=== PATIENT | female | born 1960 | race Caucasian/White ===

== ENCOUNTER 2019-12-24 13:23 | Emergency (ER) | payer OTHER, SELFPAY ==
--- NOTE | 2019-12-24 13:29 | ED.WOUNDLAC ---
HPI - Wound/Laceration General Chief Complaint: Wound/Laceration Stated Complaint: lac on L index finger Source: patient History of Present Illness HPI narrative: this is a 59-year-old female that presents with laceration to the tip of her left index finger while she was outdoors doing yd work with hedge trimmers causing a laceration of the tip of her left index finger into the nail non gaping well-approximated 2 small lacerations, initially was bleeding came in with the finger wrapped currently there is no bleeding there is some mild numbness at the tip of her finger. Onset (ago): hour(s) Extremity Location: Left: hand ( index finger laceration) Place: home and outdoors Patient tetanus UTD: No Context: accidental Associated symptoms: none Related Data Home Medications Medication Instructions Recorded Confirmed aspirin 81 mg PO DAILY 12/24/19 12/24/19 atorvastatin 40 mg PO DAILY 12/24/19 12/24/19 coQ10 (ubiquinol) 100 mg PO BID 12/24/19 12/24/19 Allergies Allergy/AdvReac Type Severity Reaction Status Date / Time No Known Allergies Allergy Verified 12/24/19 13:41 Review of Systems Review of Systems: All systems reviewed & are unremarkable except as noted in HPI and below PMFSH Past Medical History Medical History HLD (hyperlipidemia) Exam Const: General: no acute distress and alert Orientation/consciousness: patient oriented x3 HENMT: Head: normal to inspection Eyes: Conjunctivae: conjunctivae normal Pupils: Equal, round and reactive pupils present Neck: Neck: normal visual inspection, no lymphadenopathy and no meningeal signs Chest: Chest palpation & inspection: normal inspection of the chest Resp: Effort & Inspection: normal respiratory effort Auscultation: clear to auscultation bilaterally Cardio: Rate: regular rate Rhythm: regular rhythm GI: GI Palp: Yes Soft to palpation Skin: General skin exam: normal color Rashes: no rashes Other: laceration to the tip of her left index finger into the nail non gaping well-approximated Neuro: General: patient oriented x3, moves all extremities and no meningeal signs Extrem: General: normal to inspection and no pedal edema Psych: Appearance: grossly normal Mental Status: mental status grossly normal Course Course Emergency Course: Dermabond was placed on the finger, patient tolerated procedure well, and tetanus was updated Procedures Laceration Laceration 1: Date: 12/24/19 Time: 13:52 Site: upper extremity Side (If applicable): left Size (cm): 1.5 Description: irregular ( involving the the nail of her left index finger) ====== Skin Level ====== Skin layer closed with: dermabond ====== Subcutaneous Layer ====== ====== Muscle Layer ====== ====== Tendon Layer ====== MDM - Wound/Laceration ECG Data EKG #1: ECG completion date: 12/24/19 ECG completion time: 13:05 Prior ECG tracings: available for review EKG Interpretation: normal rate, bradycardia and non-specific ST changes Critical Care Time Critical Care Time Critical Care Time: No Discharge Plan Discharge Clinical Impression: Laceration Patient Disposition: Home, Self-Care Condition: Stable Instructions: Antibiotic Form, Laceration (ED) Additional Instructions: follow-up with primary care physician if symptoms persist or worsen. Prescriptions: No Action atorvastatin 40 mg tablet 40 mg PO DAILY RF: 0 aspirin 81 mg Tablet,Chewable 81 mg PO DAILY RF: 0 coQ10 (ubiquinol) 100 mg Capsule 100 mg PO BID RF: 0 Follow-up/Referrals: PHYSICIAN NOT ON STAFF,NONSTAFF [Primary Care Provider] - Time of Disposition: 13:53
[2019-12-24 13:35] VITALS: BP 167/99; PULSE 97; RESP 16; TEMP 36.7; O2SAT 100
[2019-12-24] MEDS: TETANUS,DIPHTHERIA,AC PERTUSSIS ADULT 0.5 ML (ADACEL) IM (13:38)
[2019-12-24 14:02] VITALS: RESP 15
== END 2019-12-24 14:02 | disposition home or self-care (01) ==
PROVIDERS: Emergency Provider Emergency Medicine
DX: S61.211A Laceration without foreign body of left index finger without damage to nail, initial encounter (principal); W27.8XXA Contact with other nonpowered hand tool, initial encounter
CPT/HCPCS: 12001; 90471; 90715; 99282

== ENCOUNTER 2020-01-07 10:32 | Emergency (ER) | payer OTHER, SELFPAY ==
--- NOTE | ~2020-01-07 | XR_ITS ---
XR chest 2V DATE: 01/07/2020 11:31 INDICATION: Chest pain TECHNIQUE: PA and lateral views COMPARISON: 10/30/2018 portable AP chest FINDINGS: Normal heart size. There is aortic calcification and mild unfolding. No hilar or mediastina l enlargement. No pulmonary infiltrate or consolidation, pleural effusion or pulmonary vascular conge stion or pneumothorax is detected. Surgical clips, right upper quadrant, likely due to cholecystectomy. IMPRESSION: No active cardiopulmonary disease Reviewed, dictated and finalized at location A.
--- NOTE | 2020-01-07 10:34 | ECG_ITS ---
Measurements Intervals [place] Rate: 71 P: 77 KS: 191 QRS: 7 QRSD: 94 T: 91 QT: 392 QTc: 426 Interpretive Statements SINUS RHYTHM POSSIBLE LEFT ATRIAL ENLARGEMENT NONSPECIFIC T-WAVE ABNORMALITY- HIGH LATERAL LEADS BORDERLINE ECG Electronically Signed On 01-08-2020 9:21:18 CDT by Chetan Roger D.O.
[2020-01-07 10:47] VITALS: BP 153/95; PULSE 75; PULSE 78; RESP 18; TEMP 36.7; O2SAT 98
--- NOTE | 2020-01-07 10:50 | ED.GENADULT ---
HPI - General Adult General Chief complaint: Chest Pain Stated complaint: chest tightness, L arm numbness/tingling Time Seen by Provider: 01/07/20 10:50 Source: patient Mode of arrival: ambulatory Limitations: no limitations Related Data Home Medications Medication Instructions Recorded Confirmed aspirin 81 mg PO DAILY 12/24/19 12/24/19 atorvastatin 40 mg PO DAILY 12/24/19 12/24/19 coQ10 (ubiquinol) 100 mg PO BID 12/24/19 12/24/19 Allergies Allergy/AdvReac Type Severity Reaction Status Date / Time No Known Allergies Allergy Verified 12/24/19 13:41 Discharge Plan Discharge Prescriptions: No Action atorvastatin 40 mg tablet 40 mg PO DAILY RF: 0 aspirin 81 mg Tablet,Chewable 81 mg PO DAILY RF: 0 coQ10 (ubiquinol) 100 mg Capsule 100 mg PO BID RF: 0
[2020-01-07] MEDS: ASPIRIN 81 MG CHEWABLE TABLET 243 MG PO (11:17)
[2020-01-07 11:19] LABS: Basophils Absolute Auto 0.03 K/mm3 (0.00-0.10); Basophils Percent Auto 0.5 % (0.0-1.0); Eosinophils Absolute Auto 0.23 K/mm3 (0.02-0.50); Eosinophils Percent Auto 3.5 % (1.0-6.0); Hematocrit 38.9 % (35.0-49.0); Hemoglobin 13.3 g/dL (12.0-15.0); Immature Granulocyte Absolute 0.01 K/mm3 (0.00-0.00); Immature Granulocyte Percent A 0.2 % (0.0-0.0); Lymphocytes Absolute Auto 1.84 K/mm3 (1.10-4.50); Lymphocytes Percent Auto 28.3 % (18.0-42.0); Mean Corpuscular HGB Conc 34.2 g/dL (32.0-36.0); Mean Corpuscular Volume 93.7 fL (78.0-102.0); Mean Platelet Volume 9.7 fl (9.2-11.8); Monocytes Percent Auto 7.7 % (2.0-11.0); Neutrophils Absolute Auto 3.9 K/mm3 (1.7-7.2); Neutrophils Percent Auto 59.8 % (50.0-70.0); Platelet Count Result 292 K/mm3 (150-420); Red Blood Count 4.15 M/mm3 (4.20-5.40); Red Cell Distribution Width 11.9 % (11.6-14.4); White Blood Count 6.5 K/mm3 (4.8-10.8)
[2020-01-07 11:20] VITALS: BP 150/80; PULSE 78; RESP 16; O2SAT 98
--- NOTE | 2020-01-07 11:30 | ED.CHESTPAIN ---
HPI - Chest Pain General Chief Complaint: Chest Pain Stated Complaint: chest tightness, L arm numbness/tingling Time Seen by Provider: 01/07/20 10:50 Source: patient Mode of arrival: ambulatory Limitations: no limitations History of Present Illness HPI narrative: 59-year-old woman with a history of hyperlipidemia comes in today complaining of chest tightness and left arm numbness down to her hand and tingling and numbness and tingling in the left side of her jaw that occurred this morning. Patient states that she was decorating her porch this morning when the tightness symptoms started. She states that she has had the tightness in her chest intermittently and some heaviness constantly over the last week. She states that she has felt a little short of breath but has had no nausea, lightheadedness, sweating, ankle swelling, cough or cold symptoms, or chest trauma. MD complaint: chest pain Onset (ago): week(s) (1) Timing of current episode: episodic Onset: during exertion Pain location: substernal Pain radiation: left arm and neck Severity: moderate Quality: tightness and heaviness Relieving factors: nothing Exacerbating factors: nothing Treatment prior to arrival: none Risk Factors Coronary artery disease risk factors: smoking history and hyperlipidemia Related Data On Oral Contraceptives: No Home Medications Medication Instructions Recorded Confirmed aspirin 81 mg PO DAILY 12/24/19 01/07/20 atorvastatin 40 mg PO DAILY 12/24/19 01/07/20 coQ10 (ubiquinol) 100 mg PO BID 12/24/19 01/07/20 Allergies Allergy/AdvReac Type Severity Reaction Status Date / Time No Known Allergies Allergy Verified 12/24/19 13:41 Review of Systems Constitutional: Constitutional: Denies chills, Denies fever(s) and Denies weakness Eyes: Eyes: Denies change in vision and Denies photophobia ENT: Denies dysphagia, Denies nasal congestion and Denies sore throat Cardiovascular: Cardiovascular: Reports chest pain, Denies rapid heart rate, Reports radiating jaw, neck or arm pain and Denies slow heart rate Respiratory: Respiratory: Denies cough, Reports dyspnea and Denies wheezing Gastrointestinal: Gastrointestinal: Denies abdominal pain, Denies diarrhea, Denies nausea and Denies vomiting Genitourinary: Genitourinary: Denies hematuria, Denies nocturia and Denies dysuria Musculoskeletal: Musculoskeletal: Denies arthralgias and Denies joint swelling Integumentary/Breasts: Skin/Breast: Denies pruritus, Denies erythema and Denies rash Neurologic: Denies vertigo, Denies dizziness and Denies syncope Endocrine: Endocrine: Denies polydipsia and Denies polyuria Hematologic/Lymphatic: Hematologic/Lymphatic: Denies easy bleeding and Denies easy bruising Allergic/Immunologic: Allergic/Immunologic: Denies lip swelling and Denies tongue swelling PMFSH Past Medical History Medical History (Updated 01/07/20 @ 12:13 by Atif Ornelas MD) Diverticulitis HLD (hyperlipidemia) Surgical History Surgical History H/O partial resection of colon History of hysterectomy S/P cholecystectomy Social History Social History Smoking status: Former smoker Tobacco type: cigarettes Alcohol use details: rarely Substance use: never Living arrangements: with family Exam Const: General: healthy appearing and alert Nutritional Appearance: well nourished Orientation/consciousness: patient oriented x3 Limitations: no limitations Other: mild acute distress HENMT: Head: normal to inspection Ears: TM's normal bilaterally and EAC's normal Face and sinus: normal facial exam Mouth: Yes moist mucous membranes Throat: posterior oropharynx normal Eyes: Conjunctivae: conjunctivae normal Pupils: Equal, round and reactive pupils present EOM: EOMs intact bilaterally Resp: Effort & Inspection: normal respiratory effort and not labored Auscul
[2020-01-07 11:31] LABS: D Dimer 0.21 mg/L (0.19-0.50); Partial Thromboplastin Time 25.6 SEC (22.3-31.6); Prothrombin Time 10.6 Seconds (9.64-11.0)
[2020-01-07 11:36] LABS: BNP < 5.0 pg/mL (0-100)
[2020-01-07 11:37] LABS: Alanine Aminotransferase 33 U/L (14-59); Alkaline Phosphatase 75 U/L (46-116); Anion Gap 7 mmol/L (8-16); Aspartate Amino Transferase 10 U/L (15-37); Bilirubin,Total 0.6 mg/dL (0.00-1.00); Blood Urea Nitrogen 21 mg/dL (7-18); Calcium 8.9 mg/dL (8.5-10.1); Carbon Dioxide 28 mmol/L (21-32); Chloride 105 mmol/L (98-108); Estimated CRCL calculation 56 ml/min; Estimated Glomerular Filt Rate > 60; Glucose 121 mg/dL (70-99); Osmolality Calculated 294 mOsm/kg (285-295); Potassium 3.8 mmol/L (3.5-5.1); Sodium 140 mmol/L (136-145); Troponin I < 0.02 ng/mL (0.00-0.056)
[2020-01-07 12:18] VITALS: BP 155/88; PULSE 68; RESP 20; O2SAT 98
== END 2020-01-07 12:23 | disposition home or self-care (01) ==
PROVIDERS: Emergency Provider Emergency Medicine
DX: R07.9 Chest pain, unspecified (principal); R06.02 Shortness of breath; Z87.891 Personal history of nicotine dependence
CPT/HCPCS: 36415; 71046; 80053; 83880; 84484; 85025; 85380; 85610; 85730; 93005; 99283; 99284; A9270

== ENCOUNTER 2022-04-17 11:51 | Outpatient (CLI) | payer OTHER, SELFPAY ==
--- NOTE | ~2022-04-17 | CT_ITS ---
EXAMINATION:CT lung screening DATE: 04/17/2022 12:43 INDICATION: Personal history of nicotine dependence. Smoker who quit 8 years ago with 34 pack year hi story. TECHNIQUE: Computed tomography (CT) of the chest was performed without intravenous contrast. Automate d exposure control and iterative reconstruction technique were employed. The dose-length product (DLP ) was 59.16 mGy-cm. COMPARISON: CT abdomen and pelvis 12/18/2013 FINDINGS: There is a small groundglass opacity in right upper lobe. There is a 4 mm nodule in right u pper lobe. There is mild bronchiectasis in right middle lobe. There is mild atelectasis in the inferi or lungs. A calcified left lung nodule and calcified left hilar and mediastinal lymph nodes are consi stent with old granulomatous disease. There is a 3.0 cm nodule in left thyroid lobe. The heart size i s normal. There are coronary artery calcifications. No pericardial effusion. There are changes of cho lecystectomy. There are cysts in the liver measuring up to 2.4 cm. There is mild thoracic spondylosis . IMPRESSION: 1. Lung-RADS category 2: Benign appearance or behavior. Continue annual screening with noncontrast lo w-dose chest CT in 12 months. 2. Thyroid nodule. Consider thyroid ultrasound for stratification. Reviewed, dictated and finalized at location A. ING COORDINATOR IMPRESSION: 1. Lung-RADS category 2: Benign appearance or behavior. Continue annual screeni ng with noncontrast low-dose chest CT in 12 months. 2. Thyroid nodule. Consider thyroid ultrasound for stratification.
--- NOTE | ~2022-04-17 | US_ITS ---
EXAMINATION: US carotid duplex BI DATE: 04/17/2022 12:39 INDICATION: Dizziness. TECHNIQUE: Grayscale, color Doppler, and pulsed Doppler images of the cervical carotid arteries were obtained. The degree of vessel stenosis is placed in one of the following categories: normal, <50%, 5 0-69%, >=70% but less than near-occlusion, near-occlusion, or total occlusion. Note that percent sten osis relative to normal distal artery lumen diameter is indirectly measured from velocity measurement s as described by Daniel, et al. Radiology 2003; 229:340-346. COMPARISON: None. FINDINGS: RIGHT: The right common carotid artery (CCA) peak systolic velocity (PSV) is 70 cm/s. The right internal car otid artery (ICA) PSV is 67 cm/s. The right ICA end-diastolic velocity (EDV) is 29 cm/s. The right IC A/CCA PSV ratio is 1.0. Grayscale and color Doppler images yield an estimate of <50% diameter reducti on from plaque in the ICA. The external carotid artery (ECA) PSV is 106 cm/s. There is antegrade flow in the right vertebral artery. LEFT: The left CCA PSV is 82 cm/s. The left ICA PSV is 72 cm/s. The left ICA EDV is 30 cm/s. The left ICA/C CA PSV ratio is 0.9. Grayscale and color Doppler images yield an estimate of <50% diameter reduction from plaque in the ICA. The ECA PSV is 112 cm/s. There is antegrade flow in the left vertebral artery . 4.3 similar likely benign TI-RADS anechoic cystic nodule in the inferior left thyroid lobe. IMPRESSION: 1. <50% stenosis in the right internal carotid artery. 2. <50% stenosis in the left internal carotid artery. Reviewed, dictated and finalized at location A. DENCY DIRECTOR
== END 2022-04-17 11:52 | disposition home or self-care (01) ==
PROVIDERS: PCP Internal Medicine; Visit Provider Internal Medicine
DX: Z12.2 Encounter for screening for malignant neoplasm of respiratory organs (principal); Z87.891 Personal history of nicotine dependence; R42 Dizziness and giddiness; E04.1 Nontoxic single thyroid nodule; I65.23 Occlusion and stenosis of bilateral carotid arteries
CPT/HCPCS: 71271; 93880

== ENCOUNTER 2022-05-13 12:11 | Outpatient (CLI) | payer OTHER, SELFPAY ==
--- NOTE | ~2022-05-13 | US_ITS ---
EXAMINATION: US thyroid DATE: 05/13/2022 13:15 INDICATION: Thyroid nodule TECHNIQUE: Multiple ultrasound images of the thyroid were obtained. COMPARISON: None. FINDINGS: The right thyroid lobe measures 4.7 x 1.3 x 1.4 cm. The left thyroid lobe measures 5.7 x 2.1 x 3.2 c m. 3.2 x 2.9 x 1.8 cm TI RADS 1 cystic nodules in the left thyroid. 8 mm isoechoic solid wider than tall nodule with ill-defined margins and without echogenic foci (TI-RADS 3, mildly suspicious , FNA i f >=2.5 cm, annual followup is >=1.5 cm) also in the left thyroid lobe. There is normal echotexture, echogenicity and vascular flow throughout the remaining thyroid gland. IMPRESSION: 1. 8 mm TI RADS 3 nodule and 3.2 cm TI RADS 1 cystic nodule in the left thyroid, neither meeting crit eria for either biopsy or ultrasound follow-up. Reviewed, dictated and finalized at location L. GER WOUND CARE IMPRESSION: 1. 8 mm TI RADS 3 nodule and 3.2 cm TI RADS 1 cystic nodule in the left thyroid , neither meeting criteria for either biopsy or ultrasound follow-up.
== END 2022-05-13 12:12 | disposition home or self-care (01) ==
LOC: CHSIMG 12:13
PROVIDERS: PCP Internal Medicine; Visit Provider Internal Medicine
DX: E04.1 Nontoxic single thyroid nodule (principal)
CPT/HCPCS: 76536

== ENCOUNTER 2022-08-14 12:07 | Outpatient (CLI) | payer OTHER, SELFPAY ==
--- NOTE | ~2022-08-14 | MM_ITS ---
EXAMINATION: MM screening amarjit BI w estuardo HISTORY: Screening mammogram TECHNIQUE: Craniocaudal and mediolateral oblique 3-D tomosynthesis images were obtained and synthetic 2-D images were generated. CAD analysis was submitted and interpreted. COMPARISON: No prior mammogram is available for comparison at this institution. BREAST PARENCHYMAL COMPOSITION: There are scattered areas of fibroglandular density. FINDINGS: There is no evidence of suspicious mass, calcification, or architectural distortion to sugg est malignancy in either breast. There has been no suspicious interval change. IMPRESSION: 1. No mammographic evidence of malignancy. 2. Recommend routine screening mammography in one year. BI-RADS Category 1: Negative Reviewed, dictated and finalized at location A.
--- NOTE | ~2022-08-14 | DEXA_ITS ---
Bone Density Report Name: CHANTALE MULLIGAN Age: 62 Sex: Female Ethnicity: White Date of : 1960 Indication: postmenopausal; screening for osteoporosis; hysterectomy; Referring Provider: Bran, Suze Castañeda Study: Bone densitometry was performed. Exam Date: August 14, 2022 Accession number: [id number] Bone Density: Region BMD T-score Z-score Classification AP Spine(L2, L3, L4) 1.020 -0.5 1.1 Normal Femoral Neck (Left) 0.636 -1.9 -0.5 Osteopenia Total Hip (Left) 0.926 -0.1 1.0 Normal Femoral Neck (Right) 0.682 -1.5 -0.1 Osteopenia Total Hip (Right) 0.911 -0.3 0.8 Normal Femoral Neck Mean 0.659 -1.7 -0.3 Osteopenia Total Hip Mean 0.918 -0.2 0.9 Normal World Health Organization criteria for BMD impression classify patients as: Normal (T-score at or above -1.0), Osteopenia (T-score between -1.0 and -2.5), or Osteoporosis (T-score at or below -2.5). 10-year Fracture Risk(1): Major Osteoporotic Fracture 9.8% Hip Fracture 1.2% Reported Risk Factors: [place] (), Neck BMD=0.636, BMI=28.3 (1) FRAX(R) Version 3.08. Fracture probability calculated for an untreated patient. Fracture probability may be lower if the patient has received treatment. Clinical Information Provided by Patient: Has the following medical conditions: Hysterectomy Patient maximum height was 62 Menopause Age: 27 No regular weight bearing exercise Does not regularly consume dairy products Drinks caffeinated beverages Onset of menses at age 15 Number of children 4 Impression: The patient has low bone mass, based on the Left Femoral Neck T-score. Discussion: BONE DENSITY IS LOW AT ONE OR MORE SKELETAL SITES. This patient's lowest T-score is low at one or more skeletal sites. It meets the World Health Organization's (WHO) criteria for ?low bone mass? (T-score between -1.0 and -2.5). The patient's 10-year risk of fracture as calculated by FRAX is less than the threshold where pharmacological therapy is recommended by the National Osteoporosis Foundation (NOF). However, all treatment decisions require clinical judgment and consideration of individual patient factors, including patient preferences, comorbidities, previous drug use, risk factors not captured in the FRAX model (e.g., frailty, falls, vitamin D deficiency, increased bone turnover, interval significant decline in bone density) and possible under or overestimation of fracture risk by FRAX. The patient should follow a healthful lifestyle (good nutrition with adequate calcium and vitamin D, and appropriate weight-bearing exercise). Follow-Up: Consider repeating this study in 2 to 3 years to reassess this patient's status, or sooner if there is some new clinical indication. Reported by: Dr. Larry Hernandez on 08/14/2022 12:54:00 PM. ___
== END 2022-08-14 12:08 | disposition home or self-care (01) ==
LOC: CHSIMG 12:08
PROVIDERS: PCP Internal Medicine; Visit Provider Nurse Practitioner Family
DX: Z12.31 Encounter for screening mammogram for malignant neoplasm of breast (principal); Z78.0 Asymptomatic menopausal state; M85.89 Other specified disorders of bone density and structure, multiple sites
CPT/HCPCS: 77063; 77067; 77080

== ENCOUNTER 2022-08-27 08:29 | Day surgery (SDC) | payer OTHER, SELFPAY ==
[2022-08-18 08:59] VITALS: BMI 28.4
[2022-08-18 14:37] VITALS: BMI 28.2
--- NOTE | 2022-08-26 12:09 | WPDANESEPPF ---
Anes - Initial Pre Proc Eval Procedure: Operation Date: 08/27/22 10:00 Proposed Procedures p Excision 3cm Mass-Right Back - Bhavin Cunningham DO Date/Time: 08/26/22 12:09 Surgeon: Bhavin Cunningham DO Pre Op Diagnosis: 3cm Back Mass Patient Data Age: 62 Gender: F Height: 1.57 m Weight: 70 kg Allergies Allergy/AdvReac Type Severity Reaction Status Date / Time atorvastatin [From Lipitor] AdvReac Intermediate Muscle Pain Verified 08/27/22 08:49 lisinopril AdvReac Intermediate Cough Verified 08/27/22 08:49 Home Medications Medication Instructions Recorded Confirmed Type loratadine 10 mg tablet 10 mg PO DAILY 07/29/22 08/27/22 History losartan 50 mg tablet 50 mg PO DAILY 07/29/22 08/27/22 History omega 9-vey-nyq-fish oil 100 1 cap PO DAILY 07/29/22 08/27/22 History mg-160 mg-1,000 mg capsule (Fish Oil) rosuvastatin 5 mg tablet 5 mg PO DAILY 07/29/22 08/27/22 History aspirin 81 mg tablet 81 mg PO DAILY 08/18/22 08/27/22 History Patient hx anesthesia problems: none Family hx anesthesia problems: none Results Review: All pre-operative results and documents have been reviewed as part of the pre-operative evaluation. [facility] Past Medical History Medical History (Updated 08/26/22 @ 12:11 by Clark Booth MD) COPD (chronic obstructive pulmonary disease) Diverticulitis HLD (hyperlipidemia) HTN (hypertension) Overweight (BMI 25.0-29.9) Surgical History Surgical History H/O partial resection of colon History of hysterectomy S/P cholecystectomy Family History Family History Father Pancreatic cancer Mother Heart disease Cerebrovascular accident Renal cancer Social History Social History Smoking packs per day: 1 Smoking cigarettes per day: 20.0 Years smoked: 32 Smoking pack-years: 32.00 Smoking status: Former smoker Tobacco type: cigarettes Second hand tobacco smoke exposure: No Alcohol intake: current Alcohol use details: occassionally Substance use: never Substance use type: does not use Living arrangements: with family Occupation/Education: retired Spiritual care concerns: No Anes - Eval Final PreProcedure Day of Procedure 08/26/22 12:09 Patient weight: overweight Heart: regular rate and rhythm Lungs: clear to auscultation and normal air movement Airway: Mallampati scale class II Neurological: alert and oriented Last oral intake: >/= 8 hours ASA classification: III Emergent: no Anesthetic plan: proceed Anesthesia type and monitoring: general GIVS Results Review: All pre-operative results and documents have been reviewed as part of the pre-operative evaluation. Informed Consent: The patient's anesthetic plan and its attendant risks and benefits were discussed with the patient/family/POA. Questions were solicited and answers provided to the satisfaction of the patient/family/POA.
--- NOTE | 2022-08-27 08:19 | SUR.PREOP ---
SPOKE WITH DR LOGAN. NO ANTIBIOTIC NEEDED.
[2022-08-27 09:00] VITALS: BP 114/80; PULSE 70; RESP 18; TEMP 36.7; O2SAT 98
[2022-08-27 09:01] VITALS: BMI 27.8
[2022-08-27] MEDS: LACTATED RINGERS 1,000 ML 30 ML IV CONT (09:15)
--- NOTE | 2022-08-27 09:53 | WPDHPUPDATE1 ---
History and Physical Update Update Date/Time: 08/27/22 09:53 History and Physical has been reviewed, including an updated exam of the patient. There are NO changes in the patient's condition. Risks, benefits, and alternatives have been discussed and questions answered. Patient agrees to proceed with procedure.
[2022-08-27] MEDS: LIDO 1%/EPINEPHRINE 1:100,000 20 ML VIAL INFILTRATE (10:27)
--- NOTE | 2022-08-27 10:44 | W.PM.PROC2 ---
Procedure Note - Detailed Date of Procedure 08/27/22 Pre-op Diagnosis 3cm Back Mass Post-op Diagnosis Same Procedure Performed excision of 3 cm back mass Surgeon Bhavin Cunningham, DO Anesthesia MAC and Local ( 1% lidocaine with epinephrine) Indications this is a 62-year-old woman who presented with a back mass that has been enlarging over the past year. She stated that it started out the size of a pea, but has increased in size since then. She has some irritation and pressure when it is pressed on, but denies any other significant changes or symptoms. A mobile subcutaneous mass was identified on exam. Discussions were made with the patient about treatment options and decision was made to proceed with excision of the 3 cm back mass with sedation. Findings The back mass was completely excised. This appeared to have fatty consistency and is likely a lipoma. The mass was completely excised and sent to the lab for pathology. No other deeper abnormalities were noted. Description of Procedure Procedure as well as risks, benefits, and alternatives were discussed with the patient. Written consent was obtained and placed in chart prior to procedure. Patient was brought back to surgical suite. She was placed in left lateral decubitus position on the operating table. Time-out was done to confirm patient and procedure. IV sedation was administered by the anesthesia department. Her back area was prepped and draped in sterile fashion using chlorhexidine prep. 1% lidocaine with epinephrine was infiltrated locally around the mass. A 4 cm transverse incision was then made using a 15 blade scalpel directly over the mass. Electrocautery was used for hemostasis and for careful dissection through the subcutaneous tissue. The mass was identified and was carefully dissected free with hemostat and electrocautery. Mass was completely excised and sent to the lab for pathology. The wound bed was then inspected. Hemostasis was achieved with electrocautery. No other masses were identified. The skin edges were then reapproximated using 3-0 nylon simple interrupted sutures. Bacitracin ointment was then applied followed by 4 x 4 gauze and Tegaderm dressing. The patient was then awakened from anesthesia and transferred to recovery. Estimated Blood Loss 5 Pathology Yes ( 3 cm back mass) Complications No immediate complications Condition Stable Disposition Same day [facility] Billing Surgery - Charge Forward: Surgery Billing
[2022-08-27 10:50] VITALS: BP 87/56; PULSE 69; RESP 16; O2SAT 96
[2022-08-27 11:10] VITALS: BP 100/58; PULSE 68; RESP 16; O2SAT 97
--- NOTE | 2022-08-27 11:12 | SUR.PHASEII ---
PT AWAKE AND ALERT. DRINKING WHITE SODA. DENIES PAIN OR NAUSEA AT THIS TIME. FIANCE AT BEDSIDE. PT ASKING TO GO HOME.
[2022-08-27 11:24] VITALS: BP 108/66; PULSE 68; RESP 16; O2SAT 98
--- NOTE | 2022-09-02 08:41 | WPDANESPN ---
Anes - Prog Note Post-Op Date/Time: 09/02/22 08:41 Cardiovascular status: normal Respiratory status: normal Airway patency: baseline Mental status: baseline Post-Op hydration status: normal Vital Signs: Last Vital Signs Temp 36.7 C 08/27/22 09:00 Pulse 68 08/27/22 11:24 Resp 16 08/27/22 11:24 BP 108/66 08/27/22 11:24 Pulse Ox 98 08/27/22 11:24 O2 Del Method Room Air 08/27/22 11:24 Pain Score (VAS): 0 Post-procedural complaints: none Patient Feedback: Patient satisfied with anesthetic care.
== END 2022-08-27 11:29 | disposition home or self-care (01) ==
PROVIDERS: PCP Internal Medicine; Visit Provider Surgery
PROC: (CPT 21931; principal; 2022-08-27 10:00)
DX: R22.2 Localized swelling, mass and lump, trunk (principal)
CPT/HCPCS: 21931

== ENCOUNTER 2022-08-27 12:11 | Outpatient (NON) | payer OTHER, SELFPAY | END 2022-08-27 12:12 | disposition home or self-care (01) | LOC: ANHLAB 08-28 12:14 | PROVIDERS: PCP Internal Medicine; Visit Provider Surgery | DX: R22.2 Localized swelling, mass and lump, trunk (principal) | CPT/HCPCS: 88304 ==

== ENCOUNTER 2022-09-10 07:51 | Outpatient (CLI) | payer OTHER, SELFPAY ==
--- NOTE | ~2022-09-10 | US_ITS ---
US right upper quadrant INDICATION: Elevated liver enzymes PROCEDURE: Realtime right upper abdominal ultrasound. COMPARISON: No prior studies for comparison. FINDINGS: The pancreas is normal without focal mass or pancreatic ductal dilation. There are multipl e liver cysts, largest measuring 3.4 cm. There is diffusely increased echogenicity in the liver paren chyma, consistent with fatty infiltration. There is normal directional flow in the portal vein. Gallbladder is surgically absent. Common bile duct measures 5.6 mm. No sonographic Guerrero's sign. IMPRESSION: 1: Hepatic steatosis. Multiple liver cysts. Reviewed, dictated and finalized at location B.
== END 2022-09-10 07:52 | disposition home or self-care (01) ==
LOC: CHSIMG 07:52
PROVIDERS: PCP Internal Medicine; Visit Provider Nurse Practitioner Family
DX: R74.01 Elevation of levels of liver transaminase levels (principal); K76.0 Fatty (change of) liver, not elsewhere classified; K76.89 Other specified diseases of liver
CPT/HCPCS: 76705

== ENCOUNTER 2022-12-08 10:44 | Outpatient (CLI) | payer OTHER, SELFPAY ==
[2022-12-08 11:10] LABS: Basophils Absolute Auto 0.03 K/mm3 (0.00-0.10); Basophils Percent Auto 0.4 % (0.0-1.0); Eosinophils Absolute Auto 0.26 K/mm3 (0.02-0.50); Eosinophils Percent Auto 3.8 % (1.0-6.0); Hematocrit 40.2 % (35.0-49.0); Immature Granulocyte Absolute 0.03 K/mm3 (0.00-0.00); Immature Granulocyte Percent A 0.4 % (0.0-0.0); Lymphocytes Absolute Auto 1.62 K/mm3 (1.10-4.50); Lymphocytes Percent Auto 23.8 % (18.0-42.0); Mean Corpuscular HGB Conc 34.8 g/dL (32.0-36.0); Mean Corpuscular Hemoglobin 33.3 pg (27.0-31.0); Mean Corpuscular Volume 95.7 fL (78.0-102.0); Mean Platelet Volume 9.9 fl (9.2-11.8); Monocytes Absolute Auto 0.47 K/mm3 (0.10-0.90); Monocytes Percent Auto 6.9 % (2.0-11.0); Neutrophils Absolute Auto 4.4 K/mm3 (1.7-7.2); Neutrophils Percent Auto 64.7 % (50.0-70.0); Platelet Count Result 293 K/mm3 (150-420); Red Cell Distribution Width 11.8 % (11.6-14.4); White Blood Count 6.8 K/mm3 (4.8-10.8)
[2022-12-08 11:11] LABS: Appearance Urine Clear (Clear); Bilirubin Urine Negative (Negative); Blood Urine Negative (Negative); Color Urine Light Yellow (Yellow); Glucose Urine UA Negative (Negative); Ketones Urine Negative (Negative); Leukocyte Esterase Ur Negative (Negative); Nitrate Urine Negative (Negative); Protein Urine Negative (Negative); Urobilinogen Urine 0.2 mg/dL (0.2-1.0); pH Urine 6.5 (5.0-8.0)
[2022-12-08 11:13] LABS: Add Urine Microscopic? NO
[2022-12-08 11:34] LABS: Alanine Aminotransferase 37 U/L (14-59); Albumin Level 4.2 g/dL (3.4-5.0); Alkaline Phosphatase 64 U/L (46-116); Amylase 51 U/L (25-115); Anion Gap 2 mmol/L (8-16); Aspartate Amino Transferase 19 U/L (15-37); Bilirubin,Total 0.4 mg/dL (0.00-1.00); Blood Urea Nitrogen 17 mg/dL (7-18); Calcium 9.8 mg/dL (8.5-10.1); Carbon Dioxide 31 mmol/L (21-32); Chloride 104 mmol/L (98-108); Creatine Kinase 103 U/L (26-192); Estimated Glomerular Filt Rate 60; Glucose 117 mg/dL (70-99); Lipase 49 U/L (16-77); Osmolality Calculated 286 mOsm/kg (285-295); Potassium 4.1 mmol/L (3.5-5.1); Sodium 137 mmol/L (136-145); Thyroid Stimulating Hormone 2.75 uIU/mL (0.36-3.74); Total Protein 7.3 g/dL (6.4-8.2)
[2022-12-08 11:35] LABS: D Dimer 0.19 mg/L (0.19-0.50)
[2022-12-08 11:43] LABS: CRP < 0.1 mg/dL (0.0-0.9); Troponin I < 4.0 ng/L (0.00-60.4)
== END 2022-12-08 10:45 | disposition home or self-care (01) ==
LOC: CHSLAB 10:46
PROVIDERS: PCP Internal Medicine; Visit Provider Nurse Practitioner Family
DX: R10.9 Unspecified abdominal pain (principal); R06.02 Shortness of breath; I10 Essential (primary) hypertension
CPT/HCPCS: 36415; 80053; 81003; 82150; 82550; 82553; 83690; 84443; 84484; 85025; 85380; 86140; 87086

== ENCOUNTER 2023-01-02 09:45 | Outpatient (CLI) | payer OTHER, SELFPAY | END 2023-01-02 09:46 | disposition home or self-care (01) | LOC: CHSCARD 09:46 | PROVIDERS: PCP Internal Medicine; Visit Provider Internal Medicine | DX: J44.9 Chronic obstructive pulmonary disease, unspecified (principal) | CPT/HCPCS: 94060; 94726; 94729 ==

== ENCOUNTER 2023-03-03 09:21 | Outpatient (CLI) | payer OTHER, SELFPAY ==
--- NOTE | ~2023-03-03 | CT_ITS ---
CT of the Abdomen and Pelvis: Indication: Abdominal pain Technique: 2.5 mm axial scans were obtained through the abdomen and pelvis following intravenous adm inistration of 100 cc of Omnipaque 350. Dose reduction technique was used on this scan by utilizing a utomated exposure control and iterative reconstruction technique. The dose-length product (DLP) was 3 22.32 mGy-cm. Findings: Scans through the lung bases are unremarkable. Hepatic cysts are present. Cholecystectomy clips present. The spleen, pancreas, adrenals and kidneys are within normal limits. There are atherosclerotic calcifications of the aorta. No lymphadenopathy. No bowel obstruction or bowel wall thickening. There is abdominal wall laxity at the umbilicus region , with wide necked herniation of fat and loop of small bowel. There is no evidence to suggest acute a ppendicitis. Images through the pelvis were performed. Urinary bladder unremarkable. Patient is post hysterectomy. No adnexal mass seen. No ascites. Impression: Wide necked umbilical hernia containing a loop of small bowel. No bowel obstruction or bowel wall thi ckening. Reviewed, dictated and finalized at [facility]. METER ENGINEER Impression: Wide necked umbilical hernia containing a loop of small bowel. No bowel obstruc tion or bowel wall thickening.
[2023-03-03 10:15] LABS: Estimated Glomerular Filt Rate > 60
== END 2023-03-03 09:22 | disposition home or self-care (01) ==
PROVIDERS: PCP Internal Medicine
DX: K42.9 Umbilical hernia without obstruction or gangrene (principal)
CPT/HCPCS: 74177; Q9967

== ENCOUNTER 2023-06-04 10:57 | Outpatient (CLI) | payer OTHER, SELFPAY ==
--- NOTE | ~2023-06-04 | XR_ITS ---
AP and lateral views of the left femur Clinical History: Pain Findings: No acute fracture or dislocation is seen. Osseous alignment is anatomic. Visualized joint s paces are grossly preserved. Soft tissues are unremarkable. Impression: Unremarkable left femoral radiographs. Reviewed, dictated and finalized at location M. D EXECUTIVE Impression: Unremarkable left femoral radiographs.
--- NOTE | ~2023-06-04 | XR_ITS ---
AP and lateral views of the right femur Clinical History: Pain Findings: No acute fracture or dislocation is seen. Osseous alignment is anatomic. Visualized joint s paces are grossly preserved. Soft tissues are unremarkable. Impression: Unremarkable right femoral radiographs. Reviewed, dictated and finalized at location M. TOUT EXAMINER Impression: Unremarkable right femoral radiographs.
--- NOTE | ~2023-06-04 | XR_ITS ---
Lumbosacral Spine: AP and lateral views Clinical History: Pain Findings: The normal lordotic curve is maintained. The vertebral bodies and posterior elements are i ntact. The intervertebral disc spaces are preserved. There is moderate facet arthropathy from L4 thr ough S1. The sacroiliac joints are normally outlined. Impression: Facet arthropathy, as above. Reviewed, dictated and finalized at location . MP PEELING MACHINE OPERATOR Impression: Facet arthropathy, as above.
--- NOTE | ~2023-06-04 | XR_ITS ---
AP and lateral views of the bilateral hips Clinical history: Pain Findings: No acute fracture or dislocation is seen. Osseous alignment is anatomic. Bilateral hip and SI joint spaces are preserved. Soft tissues are unremarkable. Impression: No significant abnormality is seen. Reviewed, dictated and finalized at location . RVISOR SKI PRODUCTION Impression: No significant abnormality is seen.
== END 2023-06-04 10:58 | disposition home or self-care (01) ==
LOC: CHSIMG 10:58
PROVIDERS: PCP Internal Medicine; Visit Provider Internal Medicine
DX: M79.659 Pain in unspecified thigh (principal); M54.50 Low back pain, unspecified; E78.5 Hyperlipidemia, unspecified; M12.88 Other specific arthropathies, not elsewhere classified, other specified site
CPT/HCPCS: 72100; 73521; 73552

== ENCOUNTER 2024-01-05 13:15 | Outpatient (CLI) | payer OTHER, SELFPAY ==
--- NOTE | ~2024-01-05 | CT_ITS ---
EXAMINATION:CT lung screening DATE: 01/05/2024 13:35 INDICATION: Personal history of nicotine dependence. TECHNIQUE: Computed tomography (CT) of the chest was performed without intravenous contrast. Automate d exposure control and iterative reconstruction technique were employed. The dose-length product (DLP ) was 49.93 mGy-cm. COMPARISON: Thyroid ultrasound 05/13/2022, chest CT 04/17/22 FINDINGS: There is a cluster of tree-in-bud opacities in right upper lobe, likely infection. A calcif ied left lung nodule and calcified left hilar lymph nodes are consistent with old granulomatous disea se. There is mild bronchiectasis in right middle lobe and lingula. There is mild atelectasis bilatera lly. No pleural effusion. There is a 2.8 cm cystic nodule in left thyroid lobe, likely benign. The he art size is normal. No pericardial effusion. There are cysts in the liver measuring up to 3.2 cm. The re are changes of cholecystectomy. There is mild thoracic spondylosis. IMPRESSION: 1. Lung-RADS category 2: Benign appearance or behavior. Continue annual screening with noncontrast lo w-dose chest CT in 12 months. Reviewed, dictated and finalized at location A. IMPRESSION: 1. Lung-RADS category 2: Benign appearance or behavior. Continue annual screeni ng with noncontrast low-dose chest CT in 12 months.
== END 2024-01-05 13:16 | disposition home or self-care (01) ==
LOC: CHSIMG 13:16
PROVIDERS: PCP Internal Medicine; Visit Provider Internal Medicine
DX: Z12.2 Encounter for screening for malignant neoplasm of respiratory organs (principal); Z87.891 Personal history of nicotine dependence
CPT/HCPCS: 71271

== ENCOUNTER 2024-02-02 09:36 | Outpatient (CLI) | payer OTHER, SELFPAY ==
--- NOTE | ~2024-02-02 | CT_ITS ---
Non-contrast CT scan of the Abdomen Clinical indication: Discomfort, hernia Technique: 2.5 mm axial scans were obtained through the abdomen without intravenous or oral contrast . Dose reduction technique was used on this scan by utilizing automated exposure control and iterativ e reconstruction technique. The dose-length product (DLP) was 201.56 mGy-cm. COMPARISON: 03/03/2023 Findings: Images through the lung bases reveal no abnormalities. 3 mm nonobstructing right renal stone present. Left kidney unremarkable. Stable hepatic cysts present. Cholecystectomy clips present. The spleen, pancreas, and adrenals appea r normal. There are atherosclerotic calcifications of the aorta. . Visualized bowel loops are unremarkable. No ascites. Fat-containing supraumbilical ventral hernia pre sent, with neck measuring 3.4 centers in diameter (axial image 58). Impression: Fat-containing supraumbilical ventral hernia, as detailed above. 3 mm nonobstructing right renal stone. Reviewed, dictated and finalized at [facility]. Impression: Fat-containing supraumbilical ventral hernia, as detailed above. 3 mm nonobstructing right renal stone.
== END 2024-02-02 09:37 | disposition home or self-care (01) ==
LOC: CHSIMG 09:37
PROVIDERS: PCP Internal Medicine; Visit Provider Surgery
DX: K43.2 Incisional hernia without obstruction or gangrene (principal); N20.0 Calculus of kidney
CPT/HCPCS: 74150

== ENCOUNTER 2024-02-17 09:06 | Outpatient (CLI) | payer OTHER, SELFPAY ==
--- NOTE | 2024-02-17 09:31 | ECG_ITS ---
Test Date: 2024-02-17 09:42:00 Measurements Intervals [place] Rate: 70 P: 68 NE: 185 QRS: -14 QRSD: 101 T: 37 QT: 380 QTc: 410 Interpretive Statements SINUS RHYTHM No previous ECG available for comparison Electronically Signed On 02-17-2024 14:47:30 CDT by Armani Castro M.D.
== END 2024-02-17 09:07 | disposition home or self-care (01) ==
PROVIDERS: PCP Internal Medicine; Visit Provider Surgery
DX: K43.2 Incisional hernia without obstruction or gangrene (principal); I10 Essential (primary) hypertension
CPT/HCPCS: 36415; 86850; 86900; 86901; 93005

== ENCOUNTER 2024-03-03 13:56 | Emergency (ER) | payer OTHER, SELFPAY ==
[2024-03-03] VITALS (23 sets, daily range): BP systolic 121–158; BP diastolic 73–86; PULSE 71–84; RESP 16–23; TEMP 37.2; O2SAT 95–100
--- NOTE | ~2024-03-03 | CT_ITS ---
EXAMINATION: CTA chest PE protocol DATE: 03/03/2024 16:08 INDICATION: Shortness of breath. TECHNIQUE: Computed tomography angiography (CTA) of the chest was performed with 100 mL Omnipaque-350 intravenous contrast timed to evaluate the pulmonary arteries. Coronal maximum intensity projection 3D-reconstructions were created by the technologist. Automated exposure control and iterative reconst ruction technique were employed. The dose-length product was 156.75 mGy-cm. COMPARISON: Chest CT 01/05/2024 FINDINGS: There are clusters of centrilobular nodules in right upper lobe and right lower lobe. There is mild atelectasis bilaterally. A calcified left lung nodule and calcified left hilar and mediastin al lymph nodes are consistent with old granulomatous disease. No pleural effusion. The heart size is normal. No pericardial effusion. There is no pulmonary embolus. There is a small sliding hiatal herni a. There are cysts in the liver measuring up to 3.2 cm. There is mild thoracic spondylosis. IMPRESSION: 1. No pulmonary embolus. 2. Mild pneumonia in right upper lobe and right lower lobe. Reviewed, dictated and finalized at location A. ECT SCIENTIST
--- NOTE | ~2024-03-03 | XR_ITS ---
EXAMINATION: XR chest 1V portable DATE: 03/03/2024 14:22 INDICATION: Mid chest pain and shortness of breath TECHNIQUE: frontal view of the chest was obtained. COMPARISON: Chest CT dated 01/05/2024 and 04/17/2022 FINDINGS: Unchanged mild discoid atelectasis/scarring at the lateral left lower lung zone along with pleural pa renchymal scarring with blunting of the left costophrenic angle but not at the cardiophrenic angle to suggest pleural effusion. Remainder of lungs are clear with no pulmonary edema, pleural effusion or pneumothorax. Calcified left hilar lymph nodes consistent with old granulomatous disease. The cardiom ediastinal silhouette is normal. Visualized bones and soft tissues are unremarkable. IMPRESSION: 1. Unchanged chronic mild atelectasis/scarring at the left lower lung zone. Reviewed, dictated and finalized at location B. TRUCTION CONSULTANT
--- NOTE | 2024-03-03 13:58 | ECG_ITS ---
Test Date: 2024-03-03 14:01:48 Measurements Intervals [place] Rate: 73 P: 72 [place]: 181 QRS: 12 QRSD: 88 T: 22 QT: 371 QTc: 411 Interpretive Statements SINUS RHYTHM DELAYED PRECORDIAL R/S TRANSITION MINIMAL Q WAVES- INFERIOR LEADS BASELINE ARTIFACT- II, III, AVF, V6 BORDERLINE ECG Compared to ECG 02/17/2024 09:42:00 No significant changes Electronically Signed On 03-03-2024 16:42:06 FOOD SERVICE by Chetan Roger D.O.
[2024-03-03 14:20] LABS: Basophils Absolute Auto 0.05 K/mm3 (0.00-0.10); Basophils Percent Auto 0.7 % (0.0-1.0); Eosinophils Absolute Auto 0.34 K/mm3 (0.02-0.50); Eosinophils Percent Auto 4.6 % (1.0-6.0); Hematocrit 38.8 % (35.0-49.0); Hemoglobin 13.6 g/dL (12.0-15.0); Immature Granulocyte Absolute 0.05 K/mm3 (0.00-0.00); Immature Granulocyte Percent A 0.7 % (0.0-0.0); Lymphocytes Absolute Auto 1.67 K/mm3 (1.10-4.50); Lymphocytes Percent Auto 22.4 % (18.0-42.0); Mean Corpuscular HGB Conc 35.1 g/dL (32-36); Mean Corpuscular Volume 91.3 fL (78.0-102.0); Monocytes Absolute Auto 0.71 K/mm3 (0.10-0.90); Monocytes Percent Auto 9.5 % (2.0-11.0); Neutrophils Absolute Auto 4.63 K/mm3 (1.70-7.20); Neutrophils Percent Auto 62.1 % (50.0-70.0); Platelet Count Result 341 K/mm3 (150-420); Red Blood Count 4.25 M/mm3 (4.20-5.40); Red Cell Distribution Width 11.7 % (11.6-14.4); White Blood Count 7.5 K/mm3 (4.8-10.8)
[2024-03-03 14:40] LABS: INR 0.9; Partial Thromboplastin Time 24.5 Sec (23.9-30.70); Prothrombin Time 10.1 Seconds (9.50-12.1)
[2024-03-03 14:49] LABS: Alanine Aminotransferase 24 U/L (14-59); Albumin Level 3.4 g/dL (3.4-5.0); Alkaline Phosphatase 74 U/L (46-116); Anion Gap 7 mmol/L (4-12); Aspartate Amino Transferase 14 U/L (15-37); Bilirubin,Total 0.2 mg/dL (0.00-1.00); Blood Urea Nitrogen 19 mg/dL (7-18); Calcium 9.3 mg/dL (8.5-10.1); Carbon Dioxide 29 mmol/L (21-32); Chloride 102 mmol/L (98-108); Estimated CRCL calculation 47 ml/min; Estimated Glomerular Filt Rate > 60; Glucose 90 mg/dL (70-99); Osmolality Calculated 288 mOsm/kg (285-295); Potassium 3.4 mmol/L (3.5-5.1); Sodium 138 mmol/L (136-145); Total Protein 6.6 g/dL (6.4-8.2); Troponin I < 4.0 ng/L (0.00-60.4)
[2024-03-03 14:50] LABS: NT Pro B Type Natriuretic Pept 27 pg/mL (0-125)
--- NOTE | 2024-03-03 15:14 | ED.CHESTPAIN ---
HPI - Chest Pain General Chief Complaint: Chest Pain Stated Complaint: chest pain Time Seen by Provider: 03/03/24 14:00 Source: patient Mode of arrival: ambulatory Limitations: no limitations History of Present Illness HPI narrative: this is 64-year-old female recently had surgery at [facility] for hernia repair and for the last couple of days has been having some chest twinges with some shortness of breath with no fever chills no nausea vomiting no radiation of her pain. The patient had surgery performed on the 22 of February had follow-up with her surgeon and things have been going on well, there is currently no redness or erythema at the surgical sites with no drainage. complaint: chest pain and chest discomfort Onset (ago): day(s) Timing of current episode: episodic Prior episodes: No Onset: during rest Pain location: subxiphoid Pain radiation: none Severity: mild Quality: aching Related Data Home Medications Medication Instructions Recorded Confirmed losartan 50 mg tablet 50 mg PO DAILY 07/29/22 03/03/24 omega 8-has-eed-fish oil 100 1 cap PO DAILY 07/29/22 03/03/24 mg-160 mg-1,000 mg capsule (Fish Oil) aspirin 81 mg tablet 81 mg PO DAILY 08/18/22 03/03/24 Lactobacillus 40-Bifidobact 1 cap PO HS 02/15/24 03/03/24 3-S.thermophilus 100 billion cell capsule (Probiotic) ezetimibe 10 mg tablet 10 mg PO HS 02/15/24 03/03/24 omeprazole 40 mg capsule,delayed 40 mg PO HS 02/15/24 03/03/24 release Allergies Allergy/AdvReac Type Severity Reaction Status Date / Time atorvastatin [From Lipitor] AdvReac Intermediate Muscle Pain Verified 03/03/24 14:24 lisinopril AdvReac Intermediate Cough Verified 03/03/24 14:24 Review of Systems Review of Systems: All systems reviewed & are unremarkable except as noted in HPI and below PMFSH Past Medical History Medical History Diverticulitis HLD (hyperlipidemia) HTN (hypertension) Overweight (BMI 25.0-29.9) Surgical History Surgical History H/O partial resection of colon History of hysterectomy History of repair of hiatal hernia April 2023 Dr. Martinez, [facility] Hx of excision of mass 3cm R back mass 08/27/22 S/P cholecystectomy Family History Family History Father Pancreatic cancer Mother Heart disease Cerebrovascular accident Renal cancer Social History Social History Smoking packs per day: 1 Smoking cigarettes per day: 20.0 Years smoked: 32 Smoking pack-years: 32.00 Smoking status: Former smoker Tobacco type: cigarettes Second hand tobacco smoke exposure: No Smoking end date: 02/15/16 Alcohol intake: current Alcohol use details: occassionally Substance use: never Substance use type: does not use Do You Feel Safe in your Home?: Yes Lack of Transportation: No Lack of Food: Never True Current Housing: I Have Housing Concerned About Future Housing: No Difficulty Paying Gas/Electric Bills: No Difficulty Paying for Meds: No Currently Unemployed: No Education: Bachelor's Degree Difficulty w/ Childcare or Family Care: No Living arrangements: with family Occupation/Education: retired Spiritual care concerns: No Exam Const: General: cooperative, healthy appearing, comfortable and no acute distress HENMT: Head: normal to inspection and No palpable skull fracture present Eyes: General: appearance normal, both eyes and all related structures Chest: Chest palpation & inspection: normal inspection of the chest and abnormal inspection of the chest ( Tender epigastric and subxiphoid area of palpation) Resp: Effort & Inspection: normal respiratory effort and able to speak in complete sentences Auscultation: clear to auscultation bilaterally Cardio: Jugular venous distension: no JVD Palpation: normal PMI Rate: regular rate Rhythm: regular rhythm Heart sounds: S1 normal heart sound present and S2 normal heart sound present GI: Inspection: normal to inspection GI Palp: Yes abdominal tenderness : General: Yes bimanual renal exam normal bilaterally Skin: General skin exam: normal color and no rashes or lesions noted Course Course Emergency Course: patient had chest x-ray that shows no acute changes, O2 sats 99% on room air blood pressure 135/86 heart rate of 82 respirations of 16. Troponins are negative EKG shows normal sinus rhythm rest of her blood work is unremarkable, with potassium at 3.4. Vital Signs Vital signs: Vital Signs Temperature 37.2 C 03/03/24 14:05 Pulse Rate 82 03/03/24 14:05 Respiratory Rate 16 03/03/24 14:05 Blood Pressure 135/86 03/03/24 14:05 Pulse Oximetry 99 03/03/24 14:05 Oxygen Delivery Room Air 03/03/24 14:05 Temperature 37.2 C 03/03/24 14:05 Pulse Rate 82 03/03/24 14:05 Respiratory Rate 16 03/03/24 14:05 Blood Pressure 135/86 03/03/24 14:05 Pulse Oximetry 99 03/03/24 14:22 Oxygen Delivery Room Air 03/03/24 14:22 MDM - Chest Pain Lab Data 03/03/24 14:15 03/03/24 14:14 Labs: Lab Results 03/03/24 03/03/24 Range/Units 14:14 14:15 WBC 7.5 (4.8-10.8) K/mm3 RBC 4.25 (4.20-5.40) M/mm3 Hgb 13.6 (12.0-15.0) g/dL Hct 38.8 (35.0-49.0) % MCV 91.3 (78.0-102.0) fL MCH 32.0 H (27.0-31.0) pg MCHC 35.1 (32-36) g/dL RDW 11.7 (11.6-14.4) % Plt Count 341 (150-420) K/mm3 MPV 9.0 L (9.2-11.8) fl Immature Gran % (Auto) 0.7 H (0.0-0.0) % Neut % (Auto) 62.1 (50.0-70.0) % Lymph % (Auto) 22.4 (18.0-42.0) % Tompkins % (Auto) 9.5 (2.0-11.0) % Eos % (Auto) 4.6 (1.0-6.0) % Baso % (Auto) 0.7 (0.0-1.0) % Lymph # (Auto) 1.67 (1.10-4.50) K/mm3 Tompkins # (Auto) 0.71 (0.10-0.90) K/mm3 Eos # (Auto) 0.34 (0.02-0.50) K/mm3 Baso # (Auto) 0.05 (0.00-0.10) K/mm3 Abs Immat Gran (auto) 0.05 H (0.00-0.00) K/mm3 Absolute Neuts (auto) 4.63 (1.70-7.20) K/mm3 Absolute Nucleated RBC 0.00 (0.00-0.00) K/mm3 Nucleated RBC % 0.0 (0-0.0) % PT 10.1 (9.50-12.1) Seconds INR 0.9 APTT 24.5 (23.9-30.70) Sec D-Dimer Pending Sodium 138 (136-145) mmol/L Potassium 3.4 L (3.5-5.1) mmol/L Chloride 102 (98-108) mmol/L Carbon Dioxide 29 (21-32) mmol/L Anion Gap 7 (4-12) mmol/L BUN 19 H (7-18) mg/dL Creatinine 0.83 (0.55-1.02) mg/dL Estim Creat Clear Calc 47 ml/min Estimated GFR > 60 (59 - ) Glucose 90 (70-99) mg/dL Calculated Osmolality 288 (285-295) mOsm/kg Calcium 9.3 (8.5-10.1) mg/dL Total Bilirubin 0.2 (0.00-1.00) mg/dL AST 14 L (15-37) U/L ALT 24 (14-59) U/L Alkaline Phosphatase 74 (46-116) U/L Troponin I < 4.0 (0.00-60.4) ng/L NT-Pro-B Natriuret Pep 27 (0-125) pg/mL Total Protein 6.6 (6.4-8.2) g/dL Albumin 3.4 (3.4-5.0) g/dL Critical Care Time Critical Care Time Critical Care Time: No Discharge Plan Discharge Clinical Impression: Atypical chest pain Patient Disposition: Home, Self-Care Condition: Stable Instructions: Antibiotic Form Prescriptions: No Action losartan 50 mg tablet 50 mg PO DAILY Rx Instructions: Says takes at HS Fish Oil 100-160-1,000 mg capsule 1 cap PO DAILY Rx Instructions: Says takes at HS omeprazole 40 mg capsule,delayed release(DR/EC) 40 mg PO HS ezetimibe 10 mg tablet 10 mg PO HS Probiotic 100 billion cell Capsule 1 cap PO HS ibuprofen 800 mg tablet 800 mg PO Q8H PRN (Reason: pain) Qty: 20 0RF hydrocodone-acetaminophen 5-325 mg tablet 1 - 2 tablet PO Q4H PRN (Reason: pain) Qty: 15 0RF aspirin 81 mg Tablet 81 mg PO DAILY Rx Instructions: Says takes at HS Follow-up/Referrals: Noah Russ MD [Primary Care Provider] -
[2024-03-03 15:36] LABS: D Dimer 0.74 mg/L (0.19-0.50)
[2024-03-03] MEDS: SODIUM CHLORIDE 0.9% IV 1,000 ML 999 ML IV CONT (16:04)
[2024-03-03] MEDS: levoFLOXacin 500 MG TABLET PO (16:31)
== END 2024-03-03 16:44 | disposition home or self-care (01) ==
PROVIDERS: Emergency Provider Emergency Medicine; PCP Internal Medicine
DX: R07.89 Other chest pain (principal); E78.5 Hyperlipidemia, unspecified; I10 Essential (primary) hypertension; Z79.899 Other long term (current) drug therapy; Z79.82 Long term (current) use of aspirin; Z87.891 Personal history of nicotine dependence
CPT/HCPCS: 36415; 71045; 71275; 80053; 83880; 84484; 85025; 85380; 85610; 85730; 93005; 96360; 99284; A9270; J7030; Q9967

== ENCOUNTER 2024-08-25 09:04 | Outpatient (CLI) | payer OTHER, SELFPAY ==
--- NOTE | ~2024-08-25 | MR_ITS ---
EXAMINATION: MR brain/brain stem wo con DATE: 08/25/2024 09:33 INDICATION: Headaches TECHNIQUE: Magnetic resonance imaging (MRI) of the brain and brainstem was performed without intraven ous contrast. Sequences included sagittal and axial T1-weighted SE, axial diffusion-weighted FS SE, a xial T2*-weighted GRE, axial T2-weighted FLAIR, and axial T2-weighted FSE. Apparent diffusion coeffic ient (ADC) maps were created. COMPARISON: None. FINDINGS: There are no areas of restricted diffusion to suggest acute infarction. No intracranial hemorrhage or abnormal intracranial mass lesion. There are no intraparenchymal signal abnormalities seen on the ot her pulse sequences. The ventricles are symmetric and normal in size. There are no abnormal extra-axi al fluid collections. Flow voids are seen in the cerebral arteries on the T2-weighted sequences consi stent with their expected patency. Visualized orbits and soft tissues are unremarkable. Mild mucosal thickening the paranasal sinuses with small mucous retention cyst along the roof of the right maxilla ry sinus. IMPRESSION: 1. Normal brain with no acute intracranial process. Reviewed, dictated and finalized at location A.
== END 2024-08-25 09:05 | disposition home or self-care (01) ==
PROVIDERS: PCP Internal Medicine; Visit Provider Internal Medicine
DX: R51.9 Headache, unspecified (principal)
CPT/HCPCS: 70551

== ENCOUNTER 2024-09-20 15:43 | Emergency (ER) | payer OTHER, SELFPAY ==
[2024-09-20] VITALS (7 sets, daily range): BP systolic 122–150; BP diastolic 68–82; PULSE 56–67; RESP 16–17; TEMP 37.1; O2SAT 96–98
--- NOTE | ~2024-09-20 | CT_ITS ---
CT abdomen pelvis wo con Ordering provider: Percy Fleming MD History: 64 years Female with . epigastric pain . Comparison: February 02, 2024 Technique: CT abdomen and pelvis without IV and without oral contrast. Automated exposure control and iterative reconstruction technique were employed. The dose-length product was 290.81 mGy-cm. Findings: VISUALIZED LOWER CHEST: Atelectatic changes in the middle lobe, lingula and left lower lobe. UPPER ABDOMINAL ORGANS: Liver: Multiple hypodensities most likely cysts unchanged from previous examination. Gallbladder: Status post cholecystectomy. Spleen: Normal. Stomach/duodenum: Normal. Diverticulum of the duodenum. Pancreas: Normal. Adrenals: Normal. Kidneys: Tiny stone in the right kidney lower pole. PELVIC ORGANS: The bladder is normal. BOWEL AND MESENTERY: Colon: No evidence of diverticulitis. Postoperative changes in the sigmoid colon. Fecal material is l oaded in the colon. Appendix is not demonstrated most likely surgically removed. Small Bowel: Normal. No obstruction. Peritoneum/mesentery: No free air or free fluid. No mesenteric lymphadenopathy. RETROPERITONEUM: Mild atheromatous disease of the abdominal aorta. No retroperitoneal lymphadenopat hy. MUSCULOSKELETAL: Superficial soft tissues: The superficial soft tissues are normal. Bones: Age appropriate degenerative changes of the spine. IMPRESSION: 1. No evidence of appendicitis, diverticulitis or intestinal obstruction. 2. Tiny stone in the right kidney lower pole. 3. Multiple hypodensities in the left are unchanged from previous examination. 4. Constipation. Reviewed, dictated and finalized at location A.
--- OUTSIDE RECORDS SUMMARY | 2024-09-20 15:45 | XMS_ITS | Clinical Summary ---
Author Organization [facility] [place] [address] Address [address] [place] [address] Care Team Providers Care Outside Energy Sales Representatives Name Role Phone Jensen Russ MD Primary Care Provider Allergies Active Allergy Reactions Criticality Noted Date Comments Codeine Other (See comments),Unknown Low 09/04/2020 Hallucinate and migrain hallucinate Other reaction(s): Other (See Comments) hallucinate Varenicline Unknown 05/18/2020 Elevated blood pressure Medications aspirin 81 mg chewable tablet Take 1 tablet (81 mg total) by mouth daily Active OMEPRAZOLE ORAL 40 mg 04/16/2022 Act andres losartan (COZAAR) 50 mg tablet 07/31/2023 Active ezetimibe (ZETIA) 10 mg tablet 09/25/2023 Active Active Problems Problem Noted Date Diagnosed Date Ex-smoker 05/23/2022 Hypertension 05/23/2022 Coronary artery calcification 05/23/2022 Hyperlipidemia 09/03/2013 Overview (07/24/2016): HYPERLIPIDEMIA NEC/NOS Abnormal glucose tolerance test (GTT) 09/03/2013 Overview (07/24/2016): IMPAIRED ORAL GLUCSE PRADEEP Gastroesophageal reflux disease 09/03/2013 Overview (07/25/2016): ESOPHAGEAL REFLUX Acute cerebrovascular insufficiency 09/03/2013 Overview (07/26/2016): AC CEREBROVASC INSUF NOS Resolved Problems Problem Noted Date Diagnosed Date Resolved Date Tobacco dependence syndrome 09/03/2013 05/23/2022 Overview (07/24/2016): TOBACCO USE DISORDER Surgical History Surgery Date Site/Laterality Comments HYSTERECTOMY 1986 Hysterectomy Family History Medical History Relation Name Comments Pancreatic cancer Father Cancer -pa ncreatic; Relation Name Status Comments Father Social History Tobacco Use Types Packs/Day Years Used Date Smoking Tobacco: Former Cigarettes Q uit: 04/20/2015 Tobacco Cessation:Counseling Given: Not Answered Alcohol Use Standard Drinks/Week Comments No 0 (1 standard drink = 0.6 oz pur e alcohol) Comments Unknown Sex and Gender Information Value Date Recorded Sex Assigned at Not on file 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 Gender Identity Not on file Sexual Orientation Not on file Obstetrics History Last Filed Vital Signs Vital Sign Reading Time Taken Comments Blood Pressure 112/71 11/16/2023 1:59 PM CDT Pulse 85 11/16/2023 1:59 PM CDT Temperature - - Respiratory Rate 18 11/16/2023 1:59 PM CDT Oxygen Saturation 96% 11/16/2023 1:59 PM CDT Inhaled Oxygen Concentration - - Weight 65.3 kg (144 lb) 11/16/2023 1:59 PM CDT Height 157.5 cm (5' 2) 11/16/2023 1:59 PM CDT Body Mass Index 26.34 11/16/2023 1:59 PM CDT Plan of Treatment Health Maintenance Due Date Last Done Comments Colon Cancer Screening-Colonoscopy 1960 Depression Screening 1960 Hepatitis C Screening 1960 Hepatitis B Screening 01/16/1978 Regular Well Visit/Exam 18-64 01/16/1978 Pneumococcal vaccine <65 (2 of 2 - PPSV23) 10/30/2020 09/04/2020 Zoster Vaccine (2 of 2) 08/05/2021 06/10/2021 Breast Cancer Screening-Mammogram 06/10/2022 06/10/2021, 06/10/2021, 06/17/2019, Additional history exists Covid-19 Vaccine (4 - 2023-2 5 season) 2023 04/08/2021, 06/15/2020, 05/25/2020 Influenza Vaccine (Season Ended) 2024 01/09/20 22, 01/19/2016 DTaP/Tdap/Td Vaccine (2 - Td or Tdap) 12/23/2029 12/24/2019, 04/20/[address] [facility] Care Teams Outside Energy Sales Representatives Relationship Specialty Start Date End Date Jensen Russ MD [address] [place] [address] PCP - General Med 08/07/22
--- OUTSIDE RECORDS SUMMARY | 2024-09-20 15:45 | XMS_ITS | Referral Summary ---
Author Organization [facility] [address] Address [address] [place] [address] Care Team Providers Care Multisensor Intelligence Officer Name Role Phone Jensen Russ MD Primary [...] 09/03/2013 05/23/2022 Overview (07/24/2016): TOBACCO USE DISORDER Social History Tobacco Use Types Packs/Day Years Used Date Smoking Tobacco: Former Cigarettes Q uit: 04/20/2015 Tobacco Cessation:Counseling Given: Not Answered Alcohol Use Standard Drinks/Week Comments No 0 (1 standard drink = 0.6 oz pur e alcohol) Comments Unknown Sex and Gender Information Value Date Recorded Sex Assigned at Not on file 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
--- OUTSIDE RECORDS SUMMARY | 2024-09-20 15:45 | XMS_ITS | Clinical Summary ---
Author Organization [facility] [employer] Address [address] [place] [address] Care Team Providers Care Gang Rider Name Role Phone Unavailable Primary Care Provider Unavailabl e Source Comments [facility],non[facility] Affiliates and Associated Physician Practices is amultiple site organization consisting of ambulatory clinics and hospital sitesin [place], [place], [place] and [place]. This disclosure is being madepursuant to the Care Everywhere program and may not contain all information available regarding this patient. Last updated 18.[facility] Allergies Active Allergy Reactions Criticality Noted Date Comments Codeine Other 09/04/2020 hallucinate Other reaction(s): Other (See Comments) hallucinate Varenicline Other 05/18/2020 Elevated blood pressure Medications * Be aware that medications may not be up to date on this document. Alwaysverify current medications with the patient. aspirin (ASPIRIN) 81 MG tablet Take 81 mg by mouth once daily Active Coenzyme Q10 (COQ-10) 100 MG Take 100 mg by mouth once daily 30 Cap 5 6 Active omeprazole (PRILOSEC) 20 MG capsule Take 20 mg by mouth daily before breakfast 1 Active potassium chloride ER (MICRO-K) 10 MEQ capsule Take 1 (one) capsule by mouth once daily 30 capsule 5 2 Active magnesium gluconate (MAG-G) 500 (27 Mg) MG tablet Take 1 (one) tablet by mouth 2 times daily 60 tablet 5 2 Active methocarbamol (ROBAXIN-750) 750 MG tablet Take 1 (one) tablet by mouth every 6 hours as needed for Muscle Spasms 30 tablet 5 2 Active lidocaine (XYLOCAINE) 5 % ointment 2 Active losartan (COZAAR) 100 MG tablet Take 1 (one) tablet by mouth once daily 100 tablet 4 2 Active albuterol HFA (PROVENTIL; VENTOLIN; PROAIR) 108 (90 Base) MCG/ACT inhaler Inhale 2 (two) puffs by mouth every 6 hours as needed 18 g 5 2 Active rosuvastatin (Crestor) 10 MG tablet TAKE 1 TABLET BY MOUTH EVERY DAY 30 tablet 3 Active Active Problems Problem Noted Date Diagnosed Date Chronic obstructive pulmonary disease 04/29/2021 Diverticulosis of large intestine without hemorr jennifer 06/18/2016 S/P cholecystectomy 11/15/2015 Meniere disease 01/13/2013 Osteopenia 01/15/2012 Overview (01/15/2012): [facility] 01/07/2012 Neck -1.7; total -0.5; spine -0.7 Heartburn 01/07/2012 Hyperlipidemia Overview (01/07/2012): Was on Lipitor, ran out of meds June 2011- side effects Resolved Problems Problem Noted Date Diagnosed Date Resolved Date Calculus of gallbladder with cholecystitis without biliary obstruction 06/18/2015 11/15/2015 Left foot pain 11/09/2014 11/15/2015 Immunizations Immunization Administration Dates Next Due INFLUENZA VACCINE, TRIV. (AF LURIA, FLUZONE TRIVALENT; 6MO+) (IIV3) 01/19/2016 Covid Onaro primary monoval ent 12+ yr 0.3mL Purple cap 06/15/2020,05/25/2020 HEP A VACCINE, ADULT 04/20/2009 HEP B VACCINE ADOL/ADULT 2 DOSE 04/20/2009 Pneumococcal Pcv13 Conj 09/04/2020 TD VACCINE 04/20/2009 TDAP (7yrs+) 12/24/2019 Zoster Hzv Vacc Recombinant Inj Im 06/10/2021 Family History Medical History Relation Name Comments Mental Retardation Brother Cancer Father Cancer - Pancreatic Father Diabetes Maternal Grandmother Heart Disease Mother cardiac stent Heart Disease Son congenital hea rt disease Relation Name Status Comments Brother Father Maternal Grandmother Mother Son Social History Tobacco Use Types Packs/Day Years Used Date Smoking Tobacco: Former Cigarettes 0.5 20 Smokeless Tobacco: Former Tobacco Cessation:Ready to Q uit: No; Counseling Given: No Alcohol Use Standard Drinks/Week Comments Yes 0 (1 standard drink = 0.6 oz pur e alcohol) wine once a month PHQ-2 Answer Date Recorded PHQ2 TOTAL SCORE 0 10/07/2021 Comments No Sex and Gender Information Value Date Recorded Sex Assigned at Not on file Legal Sex Female 2:07 PM PETAL CUTTER Gender Identity Not on file Sexual Orientation Not on file Occupation Industry Job Start Date Job End Date IT Not on file Not on file Not on file Last Filed Vital Signs Vital Sign Reading Time Taken Comments Blood Pressure 100/62 10/07/2021 3:56 PM CDT Pulse 72 10/07/2021 3:56 PM CDT Temperature 36.6 C (97.9 F) 10/07/2021 3:56 PM CDT Respiratory Rate 16 01/16/2015 10:31 AM CDT Oxygen Saturation 99% 10/07/2021 3:56 PM CDT Inhaled Oxygen Concentration - - Weight 67.1 kg (148 lb) 10/07/2021 3:56 PM CDT Height 165.1 cm (5' 5) 10/07/2021 3:56 PM CDT Body Mass Index 24.63 10/07/2021 3:56 PM CDT Plan of Treatment Health Maintenance Due Date Last Done Comments COLOGUARD (AGES 45-75) - COLON CA SCREENING 1960 CT COLONOGRAPHY - COLON CA SCREENING 1960 FIT - COLON CA SCREENING 1960 FLEX SIG - COLON CA SCREENING 1960 HIV SCREENING 01/16/1975 HEPATITIS C SCREENING 01/12/1978 HEPATITIS B VACCINE (2 of 3 - 19+ 3-dose series) 05/18/2009 04/20/2009 Respiratory Syncytial Virus (RSV) Vaccine Pt: or over 60 yrs (1 - Risk 60-74 years 1-dose series) 2020 PNEUMOCOCCAL VACCINE 50+ (2 of 2 - PPSV23) 10/30/2020 09/04/2020 ZOSTER VACCINE (2 of 2) 08/05/2021 06/10/2021 MAMMOGRAM 06/10/2022 06/10/2021, 02/04/2021, 06/17/2019, Additional history exists COVID-19 VACCINE ( season) 2023 06/15/2020, 05/25/2020 DEPRESSION SCREENING 04/20/2024 06/10/2021 COLON MONITORING 10/16/2024 10/17/2019, , 10/12/2014, Additional history exists Colorectal Cancer Screening 10/16/2024 INFLUENZA VACCINE (Season Ended) 2024 01/19/2016 COLONOSCOPY - COLON CA SCREENING 10/16/2029 10/17/2019, 10/12/2014, 10/12/2014 DTAP/TDAP/TD VACCINES (3 - Td or Tdap) 12/23/2029 12/24/2019, 04/20/2009 HIB VACCINE Aged Out No longer eligi ble based on patient's age to complete this topic HPV VACCINE Aged Out No longer eligi ble based on patient's age to complete this topic MENINGOCOCCAL (Group B) VACCINE SHARED DECISION-MAKING Aged Out No longer eligible based on patient's age to complete this topic MENINGOCOCCAL GROUPS A/C/Y/W VACCINE Aged Out No longer eligible based on patient's age to complete this topic Goals Goal Patient Goal Type Associated Problems Recent Progress Patient-Stated? Author Quit smoking / using tobacco Lifestyle On track( 016 11:40 AM CDT) No Joseph, Diedrene R Procedures Procedure Name Priority Date/Time Associated Diagnosis Comments MAMMO BILAT SCREENING W YINA Routine 06/10/2021 2:50 PM PETAL CUTTER Encounter for screening breast examination ENDOSCOPY, COLON, SCREENING Routine 10/17/2019 from Last 3 Months or Most Recently Relevant to Health Maintenance Results * MAMMO BILAT SCREENING W YINA (06/10/2021 2:50 PM PETAL CUTTER) Anatomical Region Laterality Modality Breast Bilateral Mammography 06/10/2021 4:16 PM PETAL CUTTER Impressions 06/11/2021 10:10 AM PETAL CUTTER Annual screening mammography is recommended. OVERALL FINAL ASSESSMENT: BI-RADS CATEGORY 1: NEGATIVE. *Reading Radiologist: Omar Mason on 06/11/2021 at 10:10 AM Narrative 06/11/2021 10:10 AM PETAL CUTTER EXAMINATION: BILATERAL DIGITAL SCREENING MAMMOGRAM AND BILATERAL BREAST TOMOSYNTHESIS HISTORY: Screening. COMPARISON: Serial examinations dating back to July 01, 2016. TECHNIQUE: BILATERAL digital breast tomosynthesis (DBT) and synthetic 2D digital mammogram images were obtained (bilateral craniocaudal and mediolateral oblique projections) including computer aided detection (CAD.) BREAST PARENCHYMAL COMPOSITION:Category B: There are scattered areas of fibroglandular density. MAMMOGRAM FINDINGS: There is no suspicious finding in either breast. Bruce Morales DO MAMMO ORDERABLES Final Result * ENDOSCOPY, COLON, SCREENING (10/17/2019) Scanned Document GI PROCEDURE ORDERABLES Final R esult from Last 3 Months or Most Recently Relevant to Health Maintenance Insurance [employer]
--- OUTSIDE RECORDS SUMMARY | 2024-09-20 15:45 | XMS_ITS | Clinical Summary ---
Author Organization [facility] Address [address] [place] [address] Phone Care Team Providers Care Biomedical Scientist Name Role Phone Noah Russ MD Primary Care Provider [phone] Allergies Active Allergy Reactions Criticality Noted Date Comments Codeine Other (See Comments) 09/04/2020 Hallucinate and migrain Medications aspirin (LENNY CHEWABLE) 81 mg Tablet, Chewable Take 81 mg by mouth daily. Active coenzyme Q10 100 mg Capsule Take 100 mg by mouth. 01/31/2016 Active multivitamin (DAILY-OMAR) tablet Take 1 Tablet by mouth daily. Active fish oil-omega-3 fatty acids 340-1,000 mg Capsule Take 1 Capsule by mouth daily. Active omeprazole (PriLOSEC) 40 mg Capsule, Delayed Release(E.C.) Take 1 Capsule (40 mg) by mouth daily. 90 Capsule 1 01/19/2023 Active losartan (COZAAR) 50 mg tablet Take 50 mg by mouth daily. 07/31/2023 Active nifedipine 0.2% ointment Apply to perianal area 4-6 times a day 30 Gram 1 09/17/2023 10:49 AM CDT 09/17/2023 Active triamcinolone acetonide (KENALOG) 0.1 % Cream Apply to affected area 2 times daily. 09/25/2023 Active ezetimibe (ZETIA) 10 mg tablet Take 10 mg by mouth daily. 09/25/2023 Active Active Problems Problem Noted Date Diagnosed Date Gastroesophageal reflux disease 01/19/2023 Esophageal stenosis--dilated October 2020 Elevated liver enzymes 07/19/2020 Periumbilical abdominal pain 06/22/2020 Nausea 06/22/2020 History of colon polyps--due repeat colonoscopy October 16, 2024 10/30/2019 Esophagitis 10/24/2019 H/O: hysterectomy 11/17/2015 Diverticulitis of intestine with abscess 016 Slow transit constipation 11/17/2015 Mixed hyperlipidemia Resolved Problems Problem Noted Date Diagnosed Date Resolved Date Perforated diverticulum of large intestine 11/17/2015 06/02/2023 Leucocytosis 11/17/2015 06/02/2023 Sepsis 11/17/2015 06/02/2023 S/P cholecystectomy 11/17/2015 06/02/19 24 Biliary colic 05/01/2015 06/02/2023 Diverticulitis of colon with perforation 06/02/2023 Diverticulitis of large inte rajendra with abscess without bleeding 06/02/2023 Leukocytosis 06/02/2023 Encounters Date Type Department Care Team Description 09/13/2024 External Device Data [facility] ABSTRACTION Provider, Abstract 09/07/2024 External Device Data [facility] ABSTRACTION Provider, Abstract 09/06/2024 External Device Data [facility] ABSTRACTION Provider, Abstract 07/06/2024 External Device Data [facility] ABSTRACTION Provider, Abstract 06/29/2024 External Device Data [facility] ABSTRACTION Provider, Abstract 06/28/2024 External Device Data [facility] ABSTRACTION Provider, Abstract 06/25/2024 External Device Data [facility] ABSTRACTION Provider, Abstract 06/24/2024 External Device Data [facility] ABSTRACTION Provider, Abstract 06/22/2024 External Device Data [facility] ABSTRACTION Provider, Abstract from Last 3 Months Immunizations Immunization Administration Dates Next Due Influenza Seasonal Unspecified Formulation IM Family History Medical History Relation Name Comments Healthy Brother 1 Healthy Brother 2 Healthy Brother 3 Healthy Brother 4 Cancer Father Cancer Mother liver, spine, k idney Colon Cancer Neg Hx Relation Name Status Comments Brother 1 Alive Brother 2 Alive Brother 3 Alive Brother 4 Alive Father Mother Alive Social History Tobacco Use Types Packs/Day Years Used Date Smoking Tobacco: Former Cigarettes 0.5 38 0 07/01/1977 - 07/02/2015 Smokeless Tobacco: Never Tobacco Cessation:Counseling Given: Not Answered Alcohol Use Standard Drinks/Week Comments Not Currently 0 (1 standard drink = 0.6 oz pur e alcohol) rarely Feeling Safe Answer Date Recorded Are you in a relationship wi th someone who hurts you emotionally and/or physically? Unable to obtain 05/18/2023 Food Insecurity Answer Date Recorded Social/Environmental Concerns No concerns Transportation Needs Answer Date Record ed Social/Environmental Concerns No concerns Housing Stability Answer Date Recorded Social/Environmental Concerns No concerns Utility Needs Answer Date Recorded Social/Environmental Concerns No concerns Comments No Sex and Gender Information Value Date Recorded Sex Assigned at Not on file Legal Sex Female 11:01 AM WASHER OFF Gender Identity Female 03/23/2023 12:50 PM WASHER OFF Sexual Orientation Not on file Last Filed Vital Signs Vital Sign Reading Time Taken Comments Blood Pressure 112/80 09/29/2023 8:05 AM CDT Pulse 66 05/18/2023 2:08 PM WASHER OFF Temperature 36.5 C (97.7 F) 05/18/2023 2:08 PM WASHER OFF Respiratory Rate 16 05/18/2023 2:08 PM WASHER OFF Oxygen Saturation 93% 05/18/2023 2:08 PM WASHER OFF Inhaled Oxygen Concentration - - Weight 66.7 kg (147 lb) 09/29/2023 8:05 AM CDT Height 157.5 cm (5' 2) 09/29/2023 8:05 AM CDT Body Mass Index 26.89 09/29/2023 8:05 AM CDT Plan of Treatment Upcoming Encounters Date Type Department Care Team (Latest Contact Info) Description 09/28/2024 10:40 AM CDT Office Visit [facility] [address] [place] [address] Pattie Hunt PA [address] [place] [address] 10/17/2024 8:20 AM CDT Hospital Encounter [facility] [address] [place] [address] Henrique Cobos MD [address] [facility] [place] [address] Screen for colon cancer 10/17/2024 8:20 AM CDT - 10/17/2024 9:00 AM CDT Surgery [facility] [address] [place] [address] Henrique Cobos MD [address] [facility] [place] [address] COLONOSCOPY Scheduled Procedures Name Priority Associated Diagnoses Date/Ti me COLONOSCOPY Screen for colon cancer 10/17/2024 8:20 AM CDT Health Maintenance Due Date Last Done Comments Pre-Diabetes and Diabetes Screening 1960 FIT-DNA Q 3 years 01/16/2005 FIT/FOBT Q 1 year 01/16/2005 Flex Sig/CT Colonography Q 5 years 01/16/2005 RSV VACCINE (60+ or ) (1 - Risk 60-74 years 1-dose series) 2020 ZOSTER VACCINE (2 of 2) 08/05/2021 06/10/2021 BREAST CANCER SCREENING 06/10/2022 06/10/19 22, 06/10/2021, 06/10/2021, Additional history exists INFLUENZA VACCINE (#1) 2023 01/19/2016 COLORECTAL SCREENING 10/16/2024 10/17/2019, 10/17/2019, 10/12/2014 Colorectal Cancer Screening 10/16/2024 DTAP/TDAP/TD VACCINES (2 - T d or Tdap) 12/23/2029 12/24/2019, 04/20/2009 Medical Devices Implanted Type Area Vamp Strap Ironer Device Identifier Shelf Expiration Date Model / Serial / Lot Mesh Soft Mesh 6x6 [id number] - [id number] Implanted:Qty : 1 on 05/18/2023 by Matt Martinez MD at [facility] Mesh N/A: Abdomen BARD DAVOL [id number] 02/14/2027 [id number] / / [id number] Stent Contour [id number] - [id number] Implanted:Qty : 1 on 03/30/2016 by Bruce Guevara MD at [facility] Stent Right: Ureter [employer] [id number] 11/14/2018 [id number] / / [id number] Stent Contour [id number] - [id number] Implanted:Qty : 1 on 03/30/2016 by Bruce Guevara MD at [facility] Stent Left: Ureter [employer] [id number] 12/11/2018 [id number] / / [id number] Procedures Procedure Name Priority Date/Time Associated Diagnosis Comments COLONOSCOPY REPORT 10/17/2019 7: 53 AM CDT from Last 3 Months or Most Recently Relevant to Health Maintenance Results * COLONOSCOPY REPORT (10/17/2019 7:53 AM CDT) Narrative Procedure Note Henrique Cobos MD - 10/17/2019 7:52 AM CDT [facility] Endoscopy Patient Name: Sarahi Landeros Procedure Date: 10/17/2019 Date of : 1960 Admit Type: Outpatient Attending MD: Henrique Cobos MD Procedure: Colonoscopy Indications: Surveillance: Personal history of adenomatous polyps on last colonoscopy 5 years ago Providers: Henrique Cobos MD Referring MD: Bruce Morales MD Medicines: TIVA Complications: No immediate complications. Procedure: Informed consent was obtained for the procedure, including moderate sedation after risks were discussed. Based on the pre-procedure assessment, including review of the patient's medical history, medications, allergies, and review of systems, the patient was deemed to be an appropriate candidate for sedation. A timeout was performed. Continuous ECG monitoring, pulse oximetry, blood pressure monitoring, and direct observation were performed. The Colonoscope was introduced through the anus and advanced to the terminal ileum. The colonoscopy was performed without difficulty. The patient tolerated the procedure well. The quality of the bowel preparation was good. Rectun rtetroflexion not easily achieved so careful forward view used. Estimated Blood Loss: Estimated blood loss: none. Findings: The terminal ileum appeared normal. There was evidence of a prior end-to-end colo-colonic anastomosis in the sigmoid colon. This was patent and was characterized by healthy appearing mucosa. The anastomosis was traversed. Multiple small and large-mouthed diverticula were found in the descending colon. There was no evidence of diverticular bleeding. The exam was otherwise without abnormality. Impression: - The examined portion of the ileum was normal. - Patent end-to-end colo-colonic anastomosis, characterized by healthy appearing mucosa. - Moderate diverticulosis in the descending colon. There was no evidence of diverticular bleeding. - No specimens collected. Recommendation: - Await pathology results. - Repeat colonoscopy in 5 years for surveillance. - Use fiber, for example Citrucel, Fibercon, Konsyl or Metamucil. Henrique Cobos MD 10/17/2019 7:52:22 AM This report has been signed electronically. Number of Addenda: [address]; [place] [address] Henrique Cobos MD GI PROCEDURE ORDERABLES Jessica l Result from Last 3 Months or Most Recently Relevant to Health Maintenance Insurance [employer] CHOICE POS II RX [facility] [employer] Advance Directives For more information, please contact: [phone] * Full Code (Latest Code Status on File) Date Activated Date Inactivated Comments 05/18/2023 9:15 AM 05/18/2023 4:43 PM * Full Code Date Activated Date Inactivated Comments 05/18/2023 5:58 AM 05/18/2023 9:15 AM * Full Code Date Activated Date Inactivated Comments 03/30/2016 3:11 PM 04/06/2016 3:18 PM * Full Code Date Activated Date Inactivated Comments 03/30/2016 1:09 PM 03/30/2016 3:11 PM * Full Code Date Activated Date Inactivated Comments 03/28/2016 3:29 PM 03/30/2016 1:09 PM Care Teams Biomedical Scientist Relationship Specialty Start Date End Date Noah Russ MD [address] [place] [address] PCP - General Internal Medicine 12/09/22
--- NOTE | 2024-09-20 15:55 | ED_ITS ---
HPI - Abdominal Pain General Chief Complaint: Abdominal Pain Stated Complaint: abdominal pressure. Time Seen by Provider: 09/20/24 15:55 Source: patient Mode of arrival: ambulatory Limitations: no limitations History of Present Illness HPI narrative: Patient is a 64-year-old female with epigastric pain for the past day. No associated nausea vomiting or diarrhea. She has had prior hernia repairs. Gallbladder has been removed. MD elicited complaint: abdominal pain ( Epigastric) Pertinent past history: other ( cholecystectomy, hernia repairs, hypertension, GERD) Onset (ago): day(s) ( 1) Pain Consistency: constant Location: epigastric Severity: moderate Pain scale (0-10): 5 Quality: cramping and fullness Radiation: none Migration to: no migration Exacerbating factors: nothing Relieving factors: nothing Context: confirms other ( patient having progressively and continuously epigastric fullness and discomfort for the past day) Associated symptoms: denies other symptoms Treatments prior to arrival: other ( none) Related Data Home Medications ?Medication ?Instructions ?Recorded ?Confirmed ?Last Taken ?Type losartan 50 mg tablet 50 mg PO DAILY 07/29/22 04/14/24 08/26/22 History omega 0-som-abg-fish oil 100 1 cap PO DAILY 07/29/22 04/14/24 08/24/22 History mg-160 mg-1,000 mg capsule (Fish Oil) aspirin 81 mg tablet 81 mg PO DAILY 08/18/22 04/14/24 08/26/22 History Lactobacillus 40-Bifidobact 1 cap PO HS 02/15/24 04/14/24 Unknown History 3-S.thermophilus 100 billion cell capsule (Probiotic) ezetimibe 10 mg tablet 10 mg PO HS 02/15/24 04/14/24 Unknown History omeprazole 40 mg capsule,delayed 40 mg PO HS 02/15/24 04/14/24 Unknown History release Allergies Allergy/AdvReac Type Severity Reaction Status Date / Time atorvastatin (From Lipitor) AdvReac Intermediate Muscle Pain Verified 09/20/24 15:48 lisinopril AdvReac Intermediate Cough Verified 09/20/24 15:48 Review of Systems 2 Review of Systems: All systems reviewed & are unremarkable except as noted in HPI and below Constitutional: Constitutional: Reports no additional constitutional complaints Eyes: Eyes: Reports no additional eye complaints ENT: Reports system reviewed and no additional complaints, except as documented Cardiovascular: Cardiovascular: Reports no additional cardiovascular complaints Respiratory: Respiratory: Reports no additional respiratory complaints Gastrointestinal: Gastrointestinal: Reports no additional gastrointestinal complaints Genitourinary: Genitourinary: Reports no additional female genitourinary complaints Musculoskeletal: Musculoskeletal: Reports no additional musculoskeletal complaints Integumentary/Breasts: Skin/Breast: Reports system reviewed and no additional complaints, except as docu Neurologic: Reports system reviewed and no additional complaints, except as documented Psychiatric: Psychiatric: Reports no additional psychiatric complaints Endocrine: Endocrine: Reports no additional endocrine complaints Hematologic/Lymphatic: Hematologic/Lymphatic: Reports no additional hematologic/lymphatic complaints Allergic/Immunologic: Allergic/Immunologic: Reports no additional allergic/immunologic complaints PMFSH Past Medical History Medical History Overweight (BMI 25.0-29.9) HTN (hypertension) Diverticulitis HLD (hyperlipidemia) Surgical History Surgical History H/O hernia repair 02/23/24 1. Attempted laparoscopic recurrent incisional hernia repair 2. Open 4 cm recurrent incisional hernia repair with [address] hernia patch Dr. Cunningham History of repair of hiatal hernia April 2023 Dr. Martinez, [facility] Hx of excision of mass 3cm R back mass 08/27/22 S/P cholecystectomy H/O partial resection of colon History of hysterectomy Family History Family History Father Pancreatic cancer Mother Heart disease Cerebrovascular accident Renal cancer Social History Social History Smoking packs per day: 1 Smoking cigarettes per day: 20.0 Years smoked: 32 Smoking pack-years: 32.00 Smoking status: Former smoker Tobacco type: cigarettes Second hand tobacco smoke exposure: No Smoking end date: 02/15/16 Alcohol intake: current Alcohol use details: occassionally Substance use: never Substance use type: does not use Do You Feel Safe in your Home?: Yes Lack of Transportation: No Lack of Food: Never True Current Housing: I Have Housing Concerned About Future Housing: No Difficulty Paying Gas/Electric Bills: No Difficulty Paying for Meds: No Currently Unemployed: No Education: Bachelor's Degree Difficulty w/ Childcare or Family Care: No Living arrangements: with family Occupation/Education: retired Spiritual care concerns: No Exam 2 Const: General: healthy appearing Nutritional Appearance: well nourished Orientation/consciousness: patient oriented x3 Limitations: no limitations HENMT: Head: normal to inspection Ears: external ears normal F kalyani/Nose/Sinus: Normal external nose present Eyes: Conjunctivae: conjunctivae normal Pupils: Equal, round and reactive pupils present EOM: EOMs intact bilaterally Neck: Neck: normal visual inspection Chest: Chest palpation & inspection: normal inspection of the chest Resp: Effort & Inspection: normal respiratory effort and not labored A uscultation: clear to auscultation bilaterally and no crackles Cardio: Rate: regular rate Rhythm: regular rhythm Heart sounds: no murmurs GI: Inspection: non-distended GI Palp: Yes Soft to palpation, Yes Tenderness to palpation present (GI) ( epigastrium), No Guarding due to palpation present (GI), No Rigid due to palpation, No Hernia present, No Palpable mass present and No Rebound tenderness present Auscultation: normal bowel sounds : General: Yes bladder normal to palpation Back/Spine/Pelvis: Back: no CVA tenderness Skin: General skin exam: normal color Rashes: no rashes Wounds: no wounds Neuro: General: patient oriented x3 Cranial nerves: Yes Nystagmus not present Speech: normal speech Extrem: General: normal to inspection Psych: Mental Status: mental status grossly normal Affect: normal affect Attitude: cooperative Course Vital Signs Vital signs: Vital Signs Temperature 37.1 C 09/20/24 15:43 Pulse Rate 64 09/20/24 15:43 Respiratory Rate 16 09/20/24 15:43 Blood Pressure 150/79 H 09/20/24 15:43 Pulse Oximetry 98 09/20/24 15:43 Oxygen Delivery Room Air 09/20/24 15:43 Temperature 37.1 C 09/20/24 15:43 Pulse Rate 64 09/20/24 15:43 Respiratory Rate 16 09/20/24 15:43 Blood Pressure 150/79 H 09/20/24 15:43 Pulse Oximetry 98 09/20/24 15:43 Oxygen Delivery Room Air 09/20/24 15:43 MDM - Abdominal Pain MDM Narrative Medical decision making narrative: patient is a 64-year-old female with epigastric fullness and discomfort. We will do a GI cocktail. We will get a CT scan and labs. Lab Data Attestation: I reviewed the patient's lab results. 09/20/24 16:24 09/20/24 16:24 Labs: Lab Results 09/20/24 09/20/24 Range/Units 16:16 16:24 WBC 8.4 (4.8-10.8) K/mm3 RBC 4.04 L (4.20-5.40) M/mm3 Hgb 12.6 (12.0-15.0) g/dL Hct 37.8 (35.0-49.0) % MCV 93.6 (78.0-102.0) fL MCH 31.2 H (27.0-31.0) pg MCHC 33.3 (32-36) g/dL RDW 12.2 (11.6-14.4) % Plt Count 331 (150-420) K/mm3 MPV 9.7 (9.2-11.8) fl Immature Gran % (Auto) 0.2 H (0.0-0.0) % Neut % (Auto) 57.2 (50.0-70.0) % Lymph % (Auto) 29.3 (18.0-42.0) % [place] % (Auto) 8.2 (2.0-11.0) % Eos % (Auto) 4.5 (1.0-6.0) % Baso % (Auto) 0.6 (0.0-1.0) % Lymph # (Auto) 2.47 (1.10-4.50) K/mm3 [place] # (Auto) 0.69 (0.10-0.90) K/mm3 Eos # (Auto) 0.38 (0.02-0.50) K/mm3 Baso # (Auto) 0.05 (0.00-0.10) K/mm3 Abs Immat Gran (auto) 0.02 H (0.00-0.00) K/mm3 Absolute Neuts (auto) 4.81 (1.70-7.20) K/mm3 Absolute Nucleated RBC 0.00 (0.00-0.00) K/mm3 Nucleated RBC % 0.0 (0-0.0) % Sodium 139 (137-145) mmol/L Potassium 3.7 (3.4-5.0) mmol/L Chloride 110 H (98-107) mmol/L Carbon Dioxide 26 (22-30) mmol/L Anion Gap 3 L (4-12) mmol/L BUN 19 H (7-17) mg/dL Creatinine 0.77 (0.7-1.0) mg/dL Estim Creat Clear Calc 51 ml/min Estimated GFR > 60 (59 - ) Glucose 99 (65-110) mg/dL Calculated Osmolality 290 (285-295) mOsm/kg Lactic Acid 0.7 (0.4-2.0) mmol/L Calcium 8.7 (8.4-10.2) mg/dL Total Bilirubin 0.3 (0.2-1.3) mg/dL AST 27 (14-36) U/L ALT 23 (6-35) U/L Alkaline Phosphatase 50 (38-126) U/L Troponin I < 0.012 (0.000-0.034) ng/mL Total Protein 6.2 L (6.3-8.2) g/dL Albumin 3.9 (3.5-5.1) g/dL Lipase 198 (23-300) U/L Urine Color Light yellow (Yellow) Urine Appearance Clear (Clear) Urine pH 6.0 (5.0-8.0) Ur Specific [place] 1.015 (1.010-1.020) Urine Protein Negative (Negative) Urine Glucose (UA) Negative (Negative) Urine Ketones Negative (Negative) Ur Blood (Man) Negative (Negative) Urine Nitrate Negative (Negative) Urine Bilirubin Negative (Negative) Urine Urobilinogen 0.2 (0.2-1.0) mg/dL Leukocyte Esterase Rfl Trace H (Negative) OMER/UL Urine RBC 0-2 (0-2) /hpf Urine WBC 0-3 (0-3) /hpf Ur Squamous Epith Cells Rare (Few) /hpf Urine Bacteria Trace (None) /hpf Imaging Data Attestation: I personally reviewed and interpreted this imaging study as follows: Radiologist's impression: ITS Impressions Abdomen/Pelvis CT 09/20/24 16:47 IMPRESSION: 1. No evidence of appendicitis, diverticulitis or intestinal obstruction. 2. Tiny stone in the right kidney lower pole. 3. Multiple hypodensities in the left are unchanged from previous examination. 4. Constipation. ECG Data EKG #1: Attestation: I personally reviewed and interpreted this ECG as follows: ECG completion date: 09/20/24 ECG completion time: 16:32 normal rate, sinus rhythm, no ectopy, no ST changes, normal QRS, normal QT and NL axis Discharge Plan Discharge Clinical Impression: Gastritis Qualifiers: Gastritis type: unspecified gastritis Chronicity: acute Gastritis bleeding: w ithout bleeding Qualified Code(s): K29.00 - Acute gastritis without bleeding UTI (urinary tract infection) Qualifiers: Urinary tract infection type: acute cystitis Hematuria presence: without hematuria Qualified Code(s): N30.00 - Acute cystitis without hematuria Patient Disposition: Home Condition: Stable Instructions: Gastritis (DC), Urinary Tract Infection in Women (DC) Patient Language: Sinhala Prescriptions: New pantoprazole [Protonix] 40 mg tablet,delayed release (DR/EC) 40 mg PO DAILY Qty: 30 0RF ciprofloxacin HCl [Cipro] 500 mg tablet 500 mg PO BID 5 Days Qty: 10 0RF No Action losartan 50 mg tablet 50 mg PO DAILY Rx Instructions: Says takes at HS Fish Oil 100-160-1,000 mg capsule 1 cap PO DAILY Rx Instructions: Says takes at HS omeprazole 40 mg capsule,delayed release(DR/EC) 40 mg PO HS ezetimibe 10 mg tablet 10 mg PO HS Probiotic 100 billion cell Capsule 1 cap PO HS aspirin 81 mg Tablet 81 mg PO DAILY Rx Instructions: Says takes at HS Follow-up/Referrals: Noah Russ MD [Primary Care Provider] - Time of Disposition: 17:57
--- NOTE | 2024-09-20 16:15 | ECG_ITS ---
Test Date: 2024-09-20 16:28:10 Measurements Intervals [place] Rate: 60 P: 75 OH: 190 QRS: 25 QRSD: 89 T: 65 QT: 409 QTc: 409 Interpretive Statements SINUS RHYTHM NORMAL ECG Compared to ECG 03/03/2024 14:01:48 No significant changes Electronically Signed On 09-20-2024 18:50:42 CDT by Chetan Roger D.O.
--- NOTE | 2024-09-20 16:17 | PC.NURSE ---
Cardiopulmonary at bedside for EKG
--- OUTSIDE RECORDS SUMMARY | 2024-09-20 16:20 | XMS_ITS | Clinical Summary ---
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
--- OUTSIDE RECORDS SUMMARY | 2024-09-20 16:20 | XMS_ITS | Clinical Summary ---
Author Organization [facility] Address [address] [place] [address] Phone Care Team Providers Care Typing Pool Supervisor Name Role Phone Noah Russ MD Primary Care Provider [phone] Allergies Active Allergy Reactions Criticality Noted Date [...] on file Legal Sex Female 11:01 AM BUS BOY Gender Identity Female 03/23/2023 12:50 PM BUS BOY Sexual Orientation Not on file Last Filed Vital Signs Vital Sign Reading Time Taken Comments Blood Pressure 112/80 09/29/2023 8:05 AM CDT Pulse 66 05/18/2023 2:08 PM BUS BOY Temperature 36.5 C (97.7 F) 05/18/2023 2:08 PM BUS BOY Respiratory Rate 16 05/18/2023 2:08 PM BUS BOY Oxygen Saturation 93% 05/18/2023 2:08 PM BUS BOY Inhaled Oxygen Concentration - - Weight 66.7 kg (147 lb) 09/29/2023 8:05 AM CDT Height 157.5 cm (5' 2) 09/29/2023 8:05 AM CDT Body Mass Index 26.89 09/29/2023 8:05 AM CDT Plan of Treatment Upcoming Encounters Date Type Department Care Team (Latest Contact Info) Description 09/28/2024 10:40 AM CDT Office Visit [facility] [address] [place] [address] Pattie Hunt PA [address] [place] [address] 10/17/2024 8:20 AM CDT Hospital Encounter [facility] GI [facility] [address] [place] [address] Henrique Cobos MD [address] [facility] [address] Screen for colon cancer 10/17/2024 8:20 AM CDT - 10/17/2024 9:00 AM CDT Surgery [facility] [address] [place] [address] Henrique Cobos MD [address] [facility] [address] COLONOSCOPY Scheduled Procedures Name Priority [...] 12/24/2019, 04/20/2009 Medical Devices Implanted Type Area Streetcar Starter Device Identifier Shelf Expiration Date Model / Serial / Lot Mesh Soft Mesh 6x6 [id number] - [id number] Implanted:Qty : 1 on 05/18/2023 by Matt Martinez MD at [facility] Mesh N/A: Abdomen BARD DAVOL [id number] 02/14/2027 [id number] / / [id number] Stent Contour [id number] - [id number] Implanted:Qty : 1 on 03/30/2016 by Bruce Guevara MD at [facility] Stent Right: Ureter [employer]DESIGN TE[employer]ER [id number] 11/14/2018 [id number] / / [id number] Stent Contour [id number] - [id number] Implanted:Qty : 1 on 03/30/2016 by Bruce Guevara MD at [facility] Stent Left: Ureter [employer]/DESIGN TE[employer]ER [id number] 12/11/2018 [id number] / / [id number] Procedures Procedure Name Priority Date/Time Associated Diagnosis Comments COLONOSCOPY REPORT 10/17/2019 7: 53 AM CDT from Last 3 Months or Most Recently Relevant to Health Maintenance Results * COLONOSCOPY REPORT (10/17/2019 7:53 AM CDT) Narrative Procedure Note Henrique Cobos MD - 10/17/2019 7:52 AM CDT [facility] Endoscopy Patient Name: Sarahi Landeros Procedure Date: [...] Addenda: [address]; [place] [address] Henrique Cobos MD GI PROCEDURE ORDERABLES Jessica l Result from Last 3 Months or Most Recently Relevant to Health Maintenance Insurance [employer] CHOICE POS II RX [facility] [employer] Advance Directives For more information, please contact: [phone] * Full Code (Latest Code Status on [...] 3:29 PM 03/30/2016 1:09 PM Care Teams Typing Pool Supervisor Relationship Specialty Start Date End Date Noah Russ MD [address] [place] [address] PCP - General Internal Medicine 12/09/22
--- OUTSIDE RECORDS SUMMARY | 2024-09-20 16:20 | XMS_ITS | Clinical Summary ---
Author Organization [facility] [email or web address] Address [address] [place] [address] Care Team Providers Care Cement Handler Name Role Phone Unavailable Primary Care Provider Unavailabl e Source Comments [facility],non-[facility] Affiliates and Associated Physician Practices is amultiple site organization consisting of ambulatory clinics and hospital sitesin [place], [place], [place] and [place]. This disclosure is being madepursuant to the Care Everywhere program and may not contain all information available regarding this patient. Last updated 18.[facility] [email or web address] Allergies Active Allergy Reactions Criticality Noted Date [...] LURIA, FLUZONE TRIVALENT; 6MO+) (IIV3) 01/19/2016 Covid OxiCool primary monoval ent 12+ yr 0.3mL Purple [...] on file Legal Sex Female 2:07 PM CROSSBAND LAYER Gender Identity Not on file Sexual Orientation [...] SCREENING W YINA Routine 06/10/2021 2:50 PM CROSSBAND LAYER Encounter for screening breast examination ENDOSCOPY, COLON, SCREENING Routine 10/17/2019 from Last 3 Months or Most Recently Relevant to Health Maintenance Results * MAMMO BILAT SCREENING W YINA (06/10/2021 2:50 PM CROSSBAND LAYER) Anatomical Region Laterality Modality Breast Bilateral Mammography 06/10/2021 4:16 PM CROSSBAND LAYER Impressions 06/11/2021 10:10 AM CROSSBAND LAYER Annual screening mammography is recommended. OVERALL FINAL ASSESSMENT: BI-RADS CATEGORY 1: NEGATIVE. *Reading Radiologist: Omar Mason on 06/11/2021 at 10:10 AM Narrative 06/11/2021 10:10 AM CROSSBAND LAYER EXAMINATION: BILATERAL DIGITAL SCREENING MAMMOGRAM AND BILATERAL [...]
--- OUTSIDE RECORDS SUMMARY | 2024-09-20 16:20 | XMS_ITS | Referral Summary ---
Author Organization [facility] [address] Address [address] [place] [address] Care Team Providers Care Optimization Manager Name Role Phone Jensen Russ MD Primary [...] on file Legal Sex Female 2:46 AM KILN PULLER Gender Identity Not on file Sexual Orientation [...] Plan of Treatment Not on file Insurance [facility] HMO [facility] HMO [facility] O Care Teams Optimization Manager Relationship Specialty Start Date End Date Jensen Russ MD [address] [place] [address] PCP - General Med 08/07/22
--- NOTE | 2024-09-20 16:27 | PC.NURSE ---
Patient being taken down to radiology
[2024-09-20 16:29] LABS: Basophils Absolute Auto 0.05 K/mm3 (0.00-0.10); Basophils Percent Auto 0.6 % (0.0-1.0); Eosinophils Absolute Auto 0.38 K/mm3 (0.02-0.50); Eosinophils Percent Auto 4.5 % (1.0-6.0); Hematocrit 37.8 % (35.0-49.0); Hemoglobin 12.6 g/dL (12.0-15.0); Immature Granulocyte Absolute 0.02 K/mm3 (0.00-0.00); Immature Granulocyte Percent A 0.2 % (0.0-0.0); Lymphocytes Absolute Auto 2.47 K/mm3 (1.10-4.50); Lymphocytes Percent Auto 29.3 % (18.0-42.0); Mean Corpuscular HGB Conc 33.3 g/dL (32-36); Mean Corpuscular Hemoglobin 31.2 pg (27.0-31.0); Mean Corpuscular Volume 93.6 fL (78.0-102.0); Mean Platelet Volume 9.7 fl (9.2-11.8); Monocytes Absolute Auto 0.69 K/mm3 (0.10-0.90); Monocytes Percent Auto 8.2 % (2.0-11.0); Neutrophils Absolute Auto 4.81 K/mm3 (1.70-7.20); Neutrophils Percent Auto 57.2 % (50.0-70.0); Platelet Count Result 331 K/mm3 (150-420); Red Blood Count 4.04 M/mm3 (4.20-5.40); Red Cell Distribution Width 12.2 % (11.6-14.4); White Blood Count 8.4 K/mm3 (4.8-10.8)
[2024-09-20 16:40] LABS: Lactic Acid Reflex 0.7 mmol/L (0.4-2.0)
[2024-09-20 16:42] LABS: Alanine Aminotransferase 23 U/L (6-35); Albumin Level 3.9 g/dL (3.5-5.1); Alkaline Phosphatase 50 U/L (38-126); Anion Gap 3 mmol/L (4-12); Aspartate Amino Transferase 27 U/L (14-36); Bilirubin,Total 0.3 mg/dL (0.2-1.3); Blood Urea Nitrogen 19 mg/dL (7-17); Calcium 8.7 mg/dL (8.4-10.2); Carbon Dioxide 26 mmol/L (22-30); Chloride 110 mmol/L (98-107); Estimated CRCL calculation 51 ml/min; Estimated Glomerular Filt Rate > 60; Glucose 99 mg/dL (65-110); Lipase 198 U/L (23-300); Osmolality Calculated 290 mOsm/kg (285-295); Potassium 3.7 mmol/L (3.4-5.0); Sodium 139 mmol/L (137-145); Total Protein 6.2 g/dL (6.3-8.2)
[2024-09-20] MEDS: MAG HYDROX/ALUMINUM HYD/SIMETH 30 ML, PHENobarb/HYOSCY/ATROPINE/SCOP 32.4 MG, LIDOCAINE... PO (16:47)
[2024-09-20 16:53] LABS: Troponin I < 0.012 ng/mL (0.000-0.034)
[2024-09-20 17:17] LABS: Add Urine Microscopic? YES; Appearance Urine Clear (Clear); Bilirubin Urine Negative (Negative); Blood Urine Negative (Negative); Color Urine Light Yellow (Yellow); Glucose Urine UA Negative (Negative); Ketones Urine Negative (Negative); Leukocyte Esterase Ur Trace LEU/UL (Negative); Nitrate Urine Negative (Negative); Protein Urine Negative (Negative); Specific Grav Ur 1.015 (1.010-1.020); Urobilinogen Urine 0.2 mg/dL (0.2-1.0)
[2024-09-20 17:51] LABS: Bacteria Urine Trace /hpf; RBC Urine 0-2 /hpf (0-2); Squamous Epithelial Cell Urine Rare /hpf (Few); WBC Urine 0-3 /hpf (0-3)
[2024-09-20] MEDS: PANTOPRAZOLE 40 MG TABLET PO (18:06)
[2024-09-20] MEDS: CIPROFLOXACIN 500 MG TAB PO (18:06)
== END 2024-09-20 18:09 | disposition home or self-care (01) ==
PROVIDERS: Emergency Provider Emergency Medicine; PCP Internal Medicine
DX: K29.00 Acute gastritis without bleeding (principal); N30.00 Acute cystitis without hematuria; I10 Essential (primary) hypertension; E78.5 Hyperlipidemia, unspecified; Z87.891 Personal history of nicotine dependence; Z90.49 Acquired absence of other specified parts of digestive tract
CPT/HCPCS: 36415; 74176; 80053; 81001; 83605; 83690; 84484; 85025; 93005; 99284; A9270

== ENCOUNTER 2025-01-03 07:33 | Outpatient (CLI) | payer MEDICARE, SELFPAY ==
[2025-01-03 07:49] LABS: Hematocrit 38.3 % (35.0-49.0); Hemoglobin 12.8 g/dL (12.0-15.0); Mean Corpuscular HGB Conc 33.4 g/dL (32-36); Mean Corpuscular Hemoglobin 31.6 pg (27.0-31.0); Mean Corpuscular Volume 94.6 fL (78.0-102.0); Platelet Count Result 426 K/mm3 (150-420); Red Blood Count 4.05 M/mm3 (4.20-5.40); White Blood Count 6.4 K/mm3 (4.8-10.8)
[2025-01-03 07:51] LABS: Add Urine Microscopic? YES; Appearance Urine Clear (Clear); Glucose Urine UA Negative (Negative); Leukocyte Esterase Ur Trace LEU/UL (Negative); Nitrate Urine Negative (Negative); Specific Grav Ur 1.020 (1.010-1.020)
--- OUTSIDE RECORDS SUMMARY | 2025-01-03 08:00 | XMS_ITS | Clinical Summary ---
Author Organization [facility] Address [address] [place] [address] Care Team Providers Care Program Instructor Name Role Phone Unavailable Primary Care Provider Unavailabl e Source Comments [facility],non-[facility] Affiliates and Associated Physician Practices is amultiple site organization consisting of ambulatory clinics and hospital sitesin [place], [place], [place] and [place]. This disclosure is being madepursuant to the Care Everywhere program and may not contain all information available regarding this patient. Last updated 18.[facility] Allergies Active Allergy Reactions Criticality Noted Date [...] LURIA, FLUZONE TRIVALENT; 6MO+) (IIV3) 01/19/2016 Covid BioElect[employer] primary monoval ent 12+ yr 0.3mL Purple [...] on file Legal Sex Female 2:07 PM AREA OPERATIONS MANAGER Gender Identity Not on file Sexual Orientation [...] PNEUMOCOCCAL VACCINE 50+ (2 of 2 - PPSV23, PCV20, or PCV21) 10/30/2020 09/04/2020 ZOSTER VACCINE (2 of 2) 08/05/2021 06/10/2021 MAMMOGRAM 06/10/2022 06/10/2021, 05/22, 06/17/2019, Additional history exists DEPRESSION SCREENING 04/20/2024 06/10/2021 COLON MONITORING 10/16/2024 10/17/2019, , 10/12/2014, Additional history exists Colorectal Cancer Screening 10/16/2024 COVID-19 VACCINE ( season) 2024 06/15/2020, 05/25/2020 INFLUENZA VACCINE (#1) 2024 01/19/2016 COLONOSCOPY - COLON CA SCREENING [...] SCREENING W YINA Routine 06/10/2021 2:50 PM AREA OPERATIONS MANAGER Encounter for screening breast examination ENDOSCOPY, COLON, SCREENING Routine 10/17/2019 from Last 3 Months or Most Recently Relevant to Health Maintenance Results * MAMMO BILAT SCREENING W YINA (06/10/2021 2:50 PM AREA OPERATIONS MANAGER) Anatomical Region Laterality Modality Breast Bilateral Mammography 06/10/2021 4:16 PM AREA OPERATIONS MANAGER Impressions 06/11/2021 10:10 AM AREA OPERATIONS MANAGER Annual screening mammography is recommended. OVERALL FINAL ASSESSMENT: BI-RADS CATEGORY 1: NEGATIVE. *Reading Radiologist: Omar Mason on 06/11/2021 at 10:10 AM Narrative 06/11/2021 10:10 AM AREA OPERATIONS MANAGER EXAMINATION: BILATERAL DIGITAL SCREENING MAMMOGRAM AND BILATERAL [...] Final Result * ENDOSCOPY, COLON, SCREENING (10/17/2019) us Scanned Document GI PROCEDURE ORDERABLES Final R esult from Last 3 Months or Most Recently Relevant to Health Maintenance Insurance [employer]
--- OUTSIDE RECORDS SUMMARY | 2025-01-03 08:00 | XMS_ITS | Clinical Summary ---
Author Organization [facility] Address [facility] [place] [address] Care Team Providers Care Endodontic Assistant Name Role Phone Art Gillespie MD Primary Care Provider Social History Tobacco Use Types Packs/Day Years Used Date Smoking Tobacco: Never Assessed Comments Unknown Sex and Gender Information Value Date Recorded Sex Assigned at Not on file Legal Sex Female 4:14 PM CDT Gender Identity Not on file Sexual Orientation Not on file Plan of Treatment Health Maintenance Due Date Last Done Comments Cervical Cancer Screening Pa p Smear (Age 30 to 64) Every 3 Years 1960 Colorectal Cancer Screening Colonoscopy (10 Years) 1960 Annual Physical 01/16/1963 Hepatitis C 01/16/1978 Cervical Cancer Screening Pa p with HPV Testing (Age 30 to 64) Every 5 Years 01/16/1990 Cervical Cancer Screening wi th HPV 01/16/1990 Mammogram Screening 2000 Zoster Vaccines (2 of 2) 08/05/2021 06/10/2021 Pneumococcal Vaccine: 50+ Years (2 of 2 - PPSV23) 09/04/2021 09/04/2020 COVID-19 Vaccine ( - 2024-2 6 season) 2024 04/08/2021, 06/15/2020, 05/25/2020 DTaP, Tdap and Td Vaccines ( 2 - Td or Tdap) 12/23/2029 12/24/2019, 04/20/2009 RSV Immunization or 60+ Years (1 - 1-dose 75+ series) 01/16/2035 Meningococcal B Vaccine Aged Out No l onger eligible based on patient's age to complete this topic Meningococcal Vaccine Aged Out No mor kalyani eligible based on patient's age to complete this topic RSV Immunizations Under 20 Months Aged Out No longer eligible b ased on patient's age to complete this topic Insurance AETNA Care Teams Endodontic Assistant Relationship Specialty Start Date End Date Art Gillespie MD [address] [place] [phone] PCP - General FAMILY PRACTICE 12/04/21
--- OUTSIDE RECORDS SUMMARY | 2025-01-03 08:00 | XMS_ITS | Clinical Summary ---
Author Organization [facility] Address [address] [place] [address] Phone Care Team Providers Care Radiotelegraphist Name Role Phone Noah Russ MD Primary Care Provider [phone] Allergies Active Allergy Reactions Criticality Noted Date Comments Codeine Other (See Comments) 09/04/2020 Hallucinate and migrain Medications aspirin (LENNY CHEWABLE) 81 mg Tablet, Chewable Take 81 mg by mouth daily. Active omeprazole (PriLOSEC) 40 mg Capsule, Delayed Release(E.C.) Take 1 Capsule (40 mg) by mouth daily. 90 Capsule 1 01/19/2023 Active losartan (COZAAR) 50 mg tablet Take 50 mg by mouth daily. 07/31/2023 Active ezetimibe (ZETIA) 10 mg tablet Take 10 mg by mouth daily. 09/25/2023 Active hyoscyamine 0.[address] 1 Tablet (0.125 mg) under tongue every 4 hours as needed for Spasm. 90 Tablet 1 09/28/2024 Active Active Problems Problem Noted Date Diagnosed Date Chronic abdominal pain 09/28/2024 Epigastric abdominal pain 09/28/2024 Gastroesophageal reflux disease 01/19/2023 Esophageal stenosis--dilated October [...] Sepsis 11/17/2015 06/02/2023 S/P cholecystectomy 11/17/2015 06/02/19 Biliary colic 05/01/2015 06/02/2023 Diverticulitis of colon with perforation 06/02/2023 Diverticulitis of large inte rajendra with abscess without bleeding 06/02/2023 Leukocytosis 06/02/2023 Encounters Date Type Department Care Team Description 5 External Device Data STL ABSTRACTION Provider, Abstract 5 External Device Data STL ABSTRACTION Provider, Abstract 5 External Device Data STL ABSTRACTION Provider, Abstract 5 Results Follow-Up [facility] Hepatology [address] [place] [address] Henrique Cobos MD PATHOLOGY 5 8:20 AM CDT - 5 9:00 AM CDT Surgery [facility] [address] [address] [place] [address] Hnerique Cobos MD ESOPHAGOGASTRODUODENOSCOPY 5 8:09 AM CDT Anesthesia Event [facility] [address] [place] [address] [place] [address] Nitesh Bueno DO Haines, Hannah M, AA-C 5 7:10 AM CDT - 5 9:10 AM CDT Hospital Encounter [facility] [address] [place] [address] [place] [address] Henrique Cobos MD Screen for colon cancer Discharge Disposition: Home or Self Care 5 External Device Data STL ABSTRACTION Provider, Abstract 5 External Device Data STL ABSTRACTION Provider, Abstract from Last 3 Months Immunizations Immunization Administration Dates Next Due Influenza Seasonal Unspecified Formulation IM Family History Medical History Relation Name Comments Healthy Brother 1 Healthy Brother 2 Healthy Brother 3 Healthy Brother 4 Cancer Father Pancreatic Cancer Father Cancer Mother liver, spine, k [...] someone who hurts you emotionally and/or physically? No 10/17/2024 Food Insecurity Answer Date Recorded Social/Environmental Concerns No concerns Transportation Needs Answer Date Record ed Social/Environmental Concerns No concerns Housing Stability Answer Date Recorded Social/Environmental Concerns No concerns Utility Needs Answer Date Recorded Social/Environmental Concerns No concerns Comments No Sex and Gender Information Value Date Recorded Sex Assigned at Not on file Legal Sex Female 11:01 AM SYRUP MAKER COOK Gender Identity Female 03/23/2023 12:50 PM SYRUP MAKER COOK Sexual Orientation Not on file Last Filed Vital Signs Vital Sign Reading Time Taken Comments Blood Pressure 112/62 10/17/2024 9:03 AM CDT Pulse 60 10/17/2024 9:03 AM CDT Temperature 36.1 C (97 F) 10/17/2024 8:44 AM CDT Respiratory Rate 18 10/17/2024 9:03 AM CDT Oxygen Saturation 99% 10/17/2024 9:03 AM CDT Inhaled Oxygen Concentration - - Weight 63.5 kg (140 lb) 10/17/2024 7:19 AM CDT Height 160 cm (5' 3) 10/17/2024 7:19 AM CDT Body Mass Index 24.8 10/17/2024 7:19 AM CDT Plan of Treatment Upcoming Encounters Date Type Department Care Team (Late st Contact Info) Description 03/30/2025 8:40 AM SYRUP MAKER COOK Office Visit [facility] Hepatology [address] [place] [id number] Pattie Hunt PA [address] [place] [phone] Health Maintenance Due Date Last Done Comments FIT-DNA Q 3 years 01/16/2005 FIT/FOBT Q 1 year 01/16/2005 Flex Sig/CT Colonography Q 5 years 01/16/2005 RSV VACCINE (60+ or ) (1 - Risk 60-74 years 1-dose series) 2020 ZOSTER VACCINE (2 of 2) 08/05/2021 06/10/2021 BREAST CANCER SCREENING 06/10/2022 06/10/19 22, 06/10/2021, 06/10/2021, Additional history exists INFLUENZA VACCINE (#1) 2024 01/19/2016 DTAP/TDAP/TD VACCINES (2 - T d or Tdap) 12/23/2029 12/24/2019, 04/20/2009 COLORECTAL SCREENING 10/18/2031 10/17/2024, 10/17/2024, 10/17/2019, Additional history exists Colorectal Cancer Screening 10/18/2031 Medical Devices Implanted Type Area Nutrition Worker Device Identifier Shelf Expiration Date Model / Serial / Lot Mesh Soft Mesh 6x6 [id number] - [id number] Implanted:Qty : 1 on 05/18/2023 by Matt Martinez MD at [facility] Mesh N/A: Abdomen BARD DAVOL [id number] 02/14/2027 [id number] / / [id number] Stent Contour [id number] - [id number] Implanted:Qty : 1 on 03/30/2016 by Bruce Guevara MD at [facility] Stent Right: Ureter [employer] UROLOGY/CHIEF DEPUTY CLERK/BAILIFF [id number] 11/14/2018 [id number] / / [id number] Stent Contour [id number] - [id number] Implanted:Qty : 1 on 03/30/2016 by Bruce Guevara MD at [facility] Stent Left: Ureter [employer] UROLOGY/CHIEF DEPUTY CLERK/BAILIFF [id number] 12/11/2018 [id number] / / [id number] Procedures Procedure Name Priority Date/Time Associated Diagnosis Comments COLONOSCOPY REPORT 10/17/2024 8:41 AM CDT UPPER ENDOSCOPY REPORT 8:38 AM CDT TX COLONOSCOPY FLX DX W/LOYD J SPEC WHEN PFRMD 10/17/2024 8:20 AM CDT Screen for colon cancer Epigastric abdominal pain TX ESOPHAGOGASTRODUODENOSCOP Y TRANSORAL DIAGNOSTIC 10/17/2024 8:20 AM CDT Screen for colon cancer Epigastric abdominal pain PATHOLOGY Pathology 10/17/2024 8:19 AM CDT Screen for colon cancer Epigastric abdominal pain from Last 3 Months Results * COLONOSCOPY REPORT (10/17/2024 8:41 AM CDT) Narrative Procedure Note Henrique Cobos MD - 10/17/2024 8:41 AM CDT [facility] Endoscopy Patient Name: Angela Landeros Procedure Date: 10/17/2024 Date of : 1960 Attending MD: Henrique Cobos MD, Procedure: Colonoscopy Indications: Surveillance: Personal history of adenomatous polyps on last colonoscopy 5 years ago Providers: Henrique Cobos MD Referring MD: Noah Russ Medicines: TIVA Complications: No immediate complications. Procedure: [...] quality of the bowel preparation was good. Estimated Blood Loss: Estimated blood loss was minimal. Findings: A 1 mm polyp was found in the cecum. The polyp was sessile. The polyp was removed with a cold biopsy forceps. Resection and retrieval were complete. A few diverticula were found in the entire colon. There was no evidence of diverticular bleeding. There was evidence of a prior end-to-end colo-colonic anastomosis in the sigmoid colon. This was patent. The anastomosis was traversed. The exam was otherwise without abnormality. Impression: - One 1 mm polyp in the cecum, removed with a cold biopsy forceps. Resected and retrieved. - Mild diverticulosis in the entire examined colon. There was no evidence of diverticular bleeding. - Patent end-to-end colo-colonic anastomosis. - The examination was otherwise normal. Recommendation: - Await pathology results. - Repeat screening colonoscopy in 5 years if serrated polyp, 7 years if adenomatous polyp or more benign. Henrique Cobos MD 10/17/2024 8:41:50 AM This report has been signed electronically. Number of Addenda: [address]; [place] [address] [place] Henrique Cobos MD GI PROCEDURE ORDERABLES Jessica l Result * UPPER ENDOSCOPY REPORT (10/17/2024 8:38 AM CDT) Narrative Procedure Note Henrique Cobos MD - 10/17/2024 8:38 AM CDT [facility] Endoscopy Patient Name: Angela Landeros Procedure Date: 10/17/2024 Date of : 1960 Attending MD: Henrique Cobos MD, Procedure: Upper GI endoscopy Indications: Epigastric abdominal pain Providers: Henrique Cobos MD Referring MD: Noah Russ Medicines: TIVA Complications: No immediate complications. Procedure: [...] monitoring, and direct observation were performed. The was introduced through the mouth, and advanced to the second part of duodenum. The upper GI endoscopy was accomplished without difficulty. The patient tolerated the procedure well. Estimated Blood Loss: Estimated blood loss was minimal. Findings: The esophagus was normal. The entire examined stomach was normal. Four biopsies were obtained in the gastric antrum with cold forceps for histology. The examined duodenum was normal. Six biopsies were obtained in the second portion of the duodenum with cold forceps for evaluation of celiac disease. Impression: - Normal esophagus. - Normal stomach. - Normal examined duodenum. - Four biopsies were obtained in the gastric antrum. - Six biopsies were obtained in the second portion of the duodenum. Recommendation: - Await pathology results. - Perform a colonoscopy today. Henrique Cobos MD 10/17/2024 8:38:42 AM This report has been signed electronically. Number of Addenda: [address]; [place] [address] Henrique Cobos MD GI PROCEDURE ORDERABLES Jessica l Result * PATHOLOGY (10/17/2024 8:19 AM CDT) CASE REPORT Surgical Pathology R eport Case: [id number] Authorizing Provider: Henrique Cobos MD Collected: 10/17/2024 08:19 AM Ordering Location: [facility] [address] Received: 10/17/2024 09:48 AM Pathologist: Mirna eKvin MD Specimens: A) - Duodenum, bx B) - Stomach, bx C) - Cecum, polyp 2:37 PM CDT [facility] LABORATORY SERVICES [facility] FINAL DIAGNOSIS A. Duodenum, biopsy: - Mild active duodenitis. - Villi and plasma cells are present. - No evidence of Whipple's disease, celiac sprue or Giardia. B. Stomach, biopsy: - Mild chronic inactive gastritis, negative for Helicobacter pylori organisms (as evaluated by conventional H&E morphology). - No evidence of glandular atrophy, intestinal metaplasia, dysplasia or invasive malignancy. C. Cecum, polyp, polypectomy: - Tubular adenoma. - No evidence of high-grade dysplasia or invasive malignancy. 2:37 PM CDT [facility] at 1437 CDT GROSS DESCRIPTION The specimens are received in three containers each labeled Angela A Force. Received in the first container additionally labeled duodenum biopsy are 5 pieces of pink-barahona tissue ranging from 0.2 to 0.3 cm in greatest dimension. All are submitted in cassette A1. Received in the second container additionally labeled stomach biopsy are 4 pieces of pink-barahona tissue ranging from 0.1 to 0.3 cm in greatest dimension. All are submitted in cassette B1. Received in the third container additionally labeled cecum polyp are 2 pieces of barahona tissue measuring 0.1 and 0.3 cm in greatest dimension. All are submitted in cassette C1. ELH 5 2:37 PM T [facility] MICROSCOPIC DESCRIPTION The slides are labeled [id number] and Angela Landeros. Sections of the duodenum show rare acute inflammatory cells within the lamina propria in an otherwise normal small bowel biopsy with intact villous architecture. 5 2:37 PM T [facility] OPERATIVE PROCEDURE 1: ESOPHAGOGASTRODUODENOSCOP Y 2: COLONOSCOPY 5 2:37 PM [facility] CLINICAL INFORMATION B Gastritis, r/o h.pylori Gastritis, r/o h.pylori Screen for colon cancer [Z12.11] R10.13 (ICD-10-CM) - 789.06 (ICD-9-CM) - Epigastric pain Z12.11-Screen for colon cancer R10.13-Epigastric abdominal pain 5 2:37 PM T [facility] COMMENT Special stain, immunohistochemical, and/or in situ hybridization results are interpreted with controls that demonstrate appropriate staining reactions. Note on use of immunohistochemistry reagents and in situ hybridization probes: These tests were developed and their performance characteristics determined by [facility], Department of Laboratory Medicine. It has not been cleared or approved by the U.S. Food and Drug Administration. The FDA has determined that such clearance or approval is not necessary. The test is used for clinical purposes. It should not be regarded as investigational or for research. This laboratory is certified to perform high complexity testing. Frozen section/operating room consultation, gross examination and dissection, and case sign out may have been performed in part or completely in the following laboratories: [facility], CLIA #[id number] [address] [place] [address] [id number] [address] [place] [address] Ana nydia [place], [place] #[id number] [address] [place] [address] This report was created with the Touch[employer] voice-activated dictation system. Inherent to this system is the possibility of syntax, grammar, punctuation and other errors that could impact the interpretation of the report. If there are interpretative questions about aspects of this report, please contact the performing pathologist. 2:37 PM CDT [facility] Tissue ENTIRE STOMACH / Unknown Collection / Unknown 10/17/2024 8:19 AM CDT 10/17/2024 9:48 AM CDT Comment:celiac Tissue specimen (specimen) ENTIRE STOMACH / Unknown 10/17/2024 8:19 AM CDT 10/17/2024 9:48 AM CDT Comment:Gastritis, r/o h.pyl marco Tissue specimen (specimen) (Cecum) 10/17/2024 8:34 AM CDT 10/17/2024 9:48 AM CDT Henrique Cobos MD PATHOLOGY/CYTOLOGY ORDERABLE S Final Result [facility] [facility]# [id number] [address] [place] [address] from Last 3 Months Insurance AETNA CHOICE POS II RX [facility] [employer] Advance Directives For more information, please contact: [phone] * Full Code (Latest Code Status on File) Date Activated Date Inactivated Comments 10/17/2024 7:15 AM 10/17/2024 11:10 AM * Full Code Date Activated Date Inactivated Comments 05/18/2023 9:15 AM 05/18/2023 4:43 PM * Full Code Date Activated Date Inactivated Comments 05/18/2023 5:58 AM 05/18/2023 9:15 AM * Full Code Date Activated Date Inactivated Comments 03/30/2016 3:11 PM 04/06/2016 3:18 PM * Full Code Date Activated Date Inactivated Comments 03/30/2016 1:09 PM 03/30/2016 3:11 PM Care Teams Radiotelegraphist Relationship Specialty Start Date End Date Noah Russ MD [address] [place] [address] PCP - General Internal Medicine 12/09/22
--- OUTSIDE RECORDS SUMMARY | 2025-01-03 08:00 | XMS_ITS | Clinical Summary ---
Author Organization [facility] [place] [address] Address [address] [place] [address] Care Team Providers Care Harbour Master Name Role Phone Jensen Russ MD Primary [...] on file Legal Sex Female 2:46 AM CEMENT SPRAYER HELPER Gender Identity Not on file Sexual Orientation [...] Pneumococcal vaccine <65 (2 of 2 - PPSV23, PCV20, or PCV21) 10/30/2020 09/04/2020 Zoster Vaccine (2 of 2) 08/05/2021 06/10/2021 Breast Cancer Screening-Mammogram 06/10/2022 06/10/2021, 06/10/2021, 06/17/2019, Additional history exists Covid-19 Vaccine (2024-2 6 season) 2024 04/08/2021, 06/15/2020, 05/25/2020 Influenza Vaccine (#1) 2024 01/08/2022, 2015 DTaP/Tdap/Td Vaccine (2 - Td or Tdap) 12/23/2029 12/24/2019, 04/20/2009 Insurance [facility] AETNA [employer] HMO Care Teams Harbour Master Relationship Specialty Start Date End Date Jensen Russ MD 1 [facility] [address] [facility] [address] [place] [address] PCP - General Med 08/07/22
[2025-01-03 08:32] LABS: Alanine Aminotransferase 28 U/L (6-35); Albumin Level 3.9 g/dL (3.5-5.1); Alkaline Phosphatase 63 U/L (38-126); Anion Gap 9 mmol/L (4-12); Aspartate Amino Transferase 27 U/L (14-36); Bilirubin,Total 0.4 mg/dL (0.2-1.3); Blood Urea Nitrogen 21 mg/dL (7-17); CRP 8.4 mg/dL (<1.0); Calcium 10.0 mg/dL (8.4-10.2); Carbon Dioxide 28 mmol/L (22-30); Chloride 105 mmol/L (98-107); Cholesterol 176 mg/dL (0-200); Estimated Glomerular Filt Rate > 60; Glucose 108 mg/dL (65-110); HDL Direct 47 mg/dL; Osmolality Calculated 298 mOsm/kg (285-295); Potassium 5.0 mmol/L (3.4-5.0); Sodium 142 mmol/L (137-145); Total Protein 7.0 g/dL (6.3-8.2); Triglycerides 138 mg/dL (<150)
[2025-01-03 08:45] LABS: Free T4 Free Thyroxine 1.30 ng/dL (0.78-2.19)
[2025-01-03 08:47] LABS: Free T3 3.01 pg/mL (2.18-3.98)
[2025-01-03 08:59] LABS: Thyroid Stimulating Hormone 1.970 uIU/mL (0.465-4.680)
[2025-01-03 09:23] LABS: Vitamin B12 330.0 pg/mL (239-931)
[2025-01-03 14:38] LABS: CRP 6.7 mg/dL (<1.0)
[2025-01-04 13:08] LABS: Anti-CCP Ab, IgG/IgA 8 units (0-19)
[2025-01-05 08:09] LABS: ANA by IFA Rfx Titer/Pattern Negative (.)
== END 2025-01-03 07:34 | disposition home or self-care (01) ==
PROVIDERS: PCP Internal Medicine; Visit Provider Internal Medicine
DX: E78.5 Hyperlipidemia, unspecified (principal); I10 Essential (primary) hypertension; G31.84 Mild cognitive impairment of uncertain or unknown etiology; R42 Dizziness and giddiness; R79.82 Elevated C-reactive protein (CRP)
CPT/HCPCS: 36415; 80053; 80061; 81001; 82607; 83921; 84439; 84443; 84481; 85027; 85652; 86037; 86038; 86140; 86200

== ENCOUNTER 2025-01-13 08:55 | Outpatient (CLI) | payer MEDICARE, SELFPAY ==
--- NOTE | ~2025-01-13 | CT_ITS ---
EXAMINATION:CT lung screening DATE: 01/13/2025 09:05 INDICATION: Personal history of nicotine dependence. TECHNIQUE: Computed tomography (CT) of the chest was performed without intravenous contrast. Automated exposure control and iterative reconstruction technique were employed. The dose-length product (DLP) was 55.45 mGy-cm. COMPARISON: Chest CT 03/03/2024, thyroid ultrasound 05/13/2022 FINDINGS: There are chronic tree-in-bud opacities in posterior segment right upper lobe and in superior segment right lower lobe, consistent with chronic mild infection. A calcified left lung nodule and calcified left hilar lymph nodes are consistent with old granulomatous disease. There is a 3 mm nodule in right upper lobe. There is mild bronchiectasis in right middle lobe. There is mild atelectasis bilaterally. No pleural effusion. There is a 4.0 cm nodule in left thyroid lobe that was a cyst by ultrasound, likely benign. The heart size is normal. There are coronary artery calcifications. No pericardial effusion. There are changes of cholecystectomy. There are cysts in the liver measuring up to 3.7 cm. There is mild thoracic spondylosis. IMPRESSION: 1. Lung-RADS category 2: Benign appearance or behavior. Continue annual screening with noncontrast low-dose chest CT in 12 months. Reviewed, dictated and finalized at location E. IMPRESSION: 1. Lung-RADS category 2: Benign appearance or behavior. Continue annual screeni ng with noncontrast low-dose chest CT in 12 months.
--- OUTSIDE RECORDS SUMMARY | 2025-01-13 09:02 | XMS_ITS | Clinical Summary ---
Author Organization [facility] Address [facility] [place] [address] Care Team Providers Care Railcar Switchman Name Role Phone Art Gillespie MD Primary [...] complete this topic Insurance AET[employer] Care Teams Railcar Switchman Relationship Specialty Start Date End Date Art Gillespie MD [address] [place] [phone] PCP - General FAMILY PRACTICE 12/04/21
--- OUTSIDE RECORDS SUMMARY | 2025-01-13 09:02 | XMS_ITS | Clinical Summary ---
Author Organization [facility] [address] Address [address] [place] [address] Care Team Providers Care Jboss Developer Name Role Phone Jensen Russ MD Primary [...] on file Legal Sex Female 2:46 AM CLEAR COAT SPRAYER Gender Identity Not on file Sexual Orientation [...] Td or Tdap) 12/23/2029 12/24/2019, 04/20/2009 [facility] AETNA [employer] HMO Care Teams Jboss Developer Relationship Specialty Start Date End Date Jensen Russ MD 1 [facility] [address] [facility] [address] [place] [address] PCP - General Med 08/07/22
--- OUTSIDE RECORDS SUMMARY | 2025-01-13 09:02 | XMS_ITS | Clinical Summary ---
Author Organization [facility] Address [address] [place] [address] Phone Care Team Providers Care Marketing Financial Analyst Name Role Phone Noah Russ MD Primary Care Provider [phone] Allergies Active Allergy Reactions Criticality Noted Date [...] STL ABSTRACTION Provider, Abstract 5 Results Follow-Up [facility] [address] [facility] [address] [place] [address] Henrique Cobos MD PATHOLOGY 5 8:20 AM CDT - 5 9:00 AM CDT Surgery [facility] [address] [place] [address] Henrique Cobos MD ESOPHAGOGASTRODUODENOSCOPY 5 8:09 AM CDT Anesthesia Event [facility] [address] [place] [address] [place] [address] Nitesh Bueno DO Haines, Hannah M, RAYNA-C 5 7:10 AM CDT - 5 9:10 AM CDT Hospital Encounter [facility] [address] [place] [address] Henrique Cobos MD Screen for colon cancer Discharge Disposition: Home or Self Care from Last 3 Months Immunizations Immunization Administration [...] on file Legal Sex Female 11:01 AM LINE MANAGER Gender Identity Female 03/23/2023 12:50 PM LINE MANAGER Sexual Orientation Not on file Last Filed [...] st Contact Info) Description 03/30/2025 8:40 AM LINE MANAGER Office Visit [facility] Hepatology [address], [address] [place] [address] Pattie Hunt PA [address] [place] [address] Health Maintenance Due Date Last Done Comments [...] Screening 10/18/2031 Medical Devices Implanted Type Area Brusher Warp Device Identifier Shelf Expiration Date Model / Serial / Lot Mesh Soft Mesh 6x6 [id number] - [id number] Implanted:Qty : 1 on 05/18/2023 by Matt Mratinez MD at [facility] Mesh N/A: Abdomen BARD DAVOL [id number] 02/14/2027 [id number] / / [id number] Stent Contour [id number] - [id number] Implanted:Qty : 1 on 03/30/2016 by Bruce Guevara MD at [facility] Stent Right: Ureter [employer]/BENEFITS OFFICER [id number] 11/14/2018 [id number] / / [id number] Stent Contour [id number] - [id number] Implanted:Qty : 1 on 03/30/2016 by Bruce Guevara MD at [facility] Stent Left: Ureter [employer]/BENEFITS OFFICER [id number] 12/11/2018 [id number] / / [id number] Procedures Procedure Name Priority Date/Time Associated Diagnosis Comments COLONOSCOPY REPORT 10/17/2024 8:41 AM CDT UPPER ENDOSCOPY REPORT 8:38 AM CDT MI COLONOSCOPY FLX DX W/LOYD J SPEC WHEN PFRMD 10/17/2024 8:20 AM CDT Screen for colon cancer Epigastric abdominal pain MI ESOPHAGOGASTRODUODENOSCOP Y TRANSORAL DIAGNOSTIC 10/17/2024 8:20 AM CDT Screen for colon cancer Epigastric abdominal pain PATHOLOGY Pathology 10/17/2024 8:19 AM CDT Screen for colon cancer Epigastric abdominal pain from Last 3 Months Results * COLONOSCOPY REPORT (10/17/2024 8:41 AM CDT) Narrative Procedure Note Henrique Cobos MD - 10/17/2024 8:41 AM CDT [facility] Endoscopy Patient Name: Angela Landeros Procedure Date: [...] signed electronically. Number of Addenda: [address]; [place] [address] us Henrique Cobos MD GI PROCEDURE ORDERABLES Jessica manzo Result * UPPER ENDOSCOPY REPORT (10/17/2024 8:38 AM CDT) Narrative Procedure Note Henrique Cobos MD - 10/17/2024 8:38 AM CDT [facility] Endoscopy Patient Name: Angela Landeros Procedure Date: [...] of Addenda: [address]; [place] [address] us Hnerique Cobos MD GI PROCEDURE ORDERABLES Jessica l Result * PATHOLOGY (10/17/2024 8:19 AM CDT) CASE REPORT Surgical Pathology R eport Case: [id number] Authorizing Provider: Henrique Cobos MD Collected: 10/17/2024 08:19 AM Ordering Location: [facility] [address] Received: 10/17/2024 09:48 AM Pathologist: Mirna Kevin MD Specimens: A) - Duodenum, bx B) - Stomach, bx C) - Cecum, polyp 2:37 PM CDT [facility] FINAL DIAGNOSIS A. Duodenum, biopsy: - Mild [...] dysplasia or invasive malignancy. 2:37 PM CDT [facility] at 1437 CDT GROSS DESCRIPTION The specimens [...] in cassette C1. ELH 5 2:37 PM [facility] MICROSCOPIC DESCRIPTION The slides are labeled [id number] and Angela Landeros. Sections of the duodenum show rare acute inflammatory cells within the lamina propria in an otherwise normal small bowel biopsy with intact villous architecture. 5 2:37 PM T [facility] OPERATIVE PROCEDURE 1: ESOPHAGOGASTRODUODENOSCOP Y 2: COLONOSCOPY 5 2:37 PM [facility] CLINICAL INFORMATION B Gastritis, r/o h.pylori Gastritis, r/o h.pylori Screen for colon cancer [Z12.11] R10.13 (ICD-10-CM) - 789.06 (ICD-9-CM) - Epigastric pain Z12.11-Screen for colon cancer R10.13-Epigastric abdominal pain 5 2:37 PM T [facility] COMMENT Special stain, immunohistochemical, and/or in situ hybridization results are interpreted with controls that demonstrate appropriate staining reactions. Note on use of immunohistochemistry reagents and in situ hybridization probes: These tests were developed and their performance characteristics determined by [facility], Department of Laboratory Medicine. It has not [...] part or completely in the following laboratories: [facility], [place] #[id number] [address] [place] [address] [facility] #[id number] [address] [place] [address] [facility], TRELL #[id number] [address] [place] [address] This report was created with the [employer] voice-activated dictation system. Inherent to this system is the possibility of syntax, grammar, punctuation and other errors that could impact the interpretation of the report. If there are interpretative questions about aspects of this report, please contact the performing pathologist. 2:37 PM CDT [facility] Tissue ENTIRE STOMACH / Unknown Collection / Unknown 10/17/2024 8:19 AM CDT 10/17/2024 9:48 AM CDT Comment:celiac Tissue specimen (specimen) ENTIRE STOMACH / Unknown 10/17/2024 8:19 AM CDT 10/17/2024 9:48 AM CDT Comment:Gastritis, r/o h.pyl marco Tissue specimen (specimen) (Cecum) 10/17/2024 8:34 AM CDT 10/17/2024 9:48 AM CDT Henrique Cobos MD PATHOLOGY/CYTOLOGY ORDERABLE S Final Result [facility]# [id number] [address] [place] [id number] from Last 3 Months Insurance AETNA CHOICE POS II RX [facility] Advance Directives For more information, please contact: [phone] * Full Code (Latest Code Status on [...] 1:09 PM 03/30/2016 3:11 PM Care Teams Marketing Financial Analyst Relationship Specialty Start Date End Date Noah Russ MD [address] [place] [address] PCP - General Internal Medicine 12/09/22
--- OUTSIDE RECORDS SUMMARY | 2025-01-13 09:02 | XMS_ITS | Clinical Summary ---
Author Organization [facility] Address [address] [place] [address] Care Team Providers Care Child Care Lead Teacher Name Role Phone Unavailable Primary Care Provider Unavailabl e Source Comments [facility] Affiliates and Associated Physician Practices is amultiple site organization consisting of ambulatory clinics and hospital sitesin [place], [place], [place] and [place]. This disclosure is being madepursuant to the Care Everywhere program and may not contain all information available regarding this patient. Last updated 18.[facility] Allergies Active Allergy Reactions Criticality Noted Date [...] LURIA, FLUZONE TRIVALENT; 6MO+) (IIV3) 01/19/2016 Covid Metaconomy primary monoval ent 12+ yr 0.3mL Purple [...] on file Legal Sex Female 2:07 PM MANGLE TENDER CLOTH Gender Identity Not on file Sexual Orientation [...] SCREENING W YINA Routine 06/10/2021 2:50 PM MANGLE TENDER CLOTH Encounter for screening breast examination ENDOSCOPY, COLON, SCREENING Routine 10/17/2019 from Last 3 Months or Most Recently Relevant to Health Maintenance Results * MAMMO BILAT SCREENING W YINA (06/10/2021 2:50 PM MANGLE TENDER CLOTH) Anatomical Region Laterality Modality Breast Bilateral Mammography 06/10/2021 4:16 PM MANGLE TENDER CLOTH Impressions 06/11/2021 10:10 AM MANGLE TENDER CLOTH Annual screening mammography is recommended. OVERALL FINAL ASSESSMENT: BI-RADS CATEGORY 1: NEGATIVE. *Reading Radiologist: Omar Mason on 06/11/2021 at 10:10 AM Narrative 06/11/2021 10:10 AM MANGLE TENDER CLOTH EXAMINATION: BILATERAL DIGITAL SCREENING MAMMOGRAM AND BILATERAL [...]
== END 2025-01-13 08:56 | disposition home or self-care (01) ==
LOC: CHSIMG 08:56
PROVIDERS: PCP Internal Medicine; Visit Provider Internal Medicine
DX: Z12.2 Encounter for screening for malignant neoplasm of respiratory organs (principal); Z87.891 Personal history of nicotine dependence
CPT/HCPCS: 71271

== ENCOUNTER 2025-04-18 10:27 | Outpatient (CLI) | payer MEDICARE, SELFPAY ==
--- NOTE | ~2025-04-18 | US_ITS ---
US arterial ankle brachial ind INDICATION: Peripheral arterial disease TECHNIQUE: Segmental pressures and plethysmographic and Doppler waveforms of the brachial and lower extremity arteries were obtained. COMPARISON: None. FINDINGS: Right and left brachial artery pressures of 118 mm Hg and 110 mm Hg, respectively, are concordant (normal difference <= 30 mmHg). The right ankle-brachial index (HUE) is 1.14 (normal >= 0.9-1.0). The right great toe-brachial index (TBI) is 0.91 (normal >= 0.60). The left HUE is 1.15. The left TBI is 0.91. IMPRESSION: 1. Normal ankle-brachial indices. Reviewed, dictated and finalized at location O. STITCH ZIPPER SETTER
--- OUTSIDE RECORDS SUMMARY | 2025-04-18 11:13 | XMS_ITS | Clinical Summary ---
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 Gender Identity Not on file Sexual Orientation [...] Colon Cancer Screening-Colonoscopy 1960 Depression Screening 1960 Fall Risk Assessment 1960 Hepatitis C Screening 1960 Hepatitis B Screening 01/16/1978 Osteoporosis Screening-Bone Density Scan 01/06/2014 01/07/2012 Pneumococcal vaccine 65+ (2 of 2 - PPSV23, PCV20, or PCV21) 10/30/2020 09/04/2020 Zoster Vaccine (2 of 2) 08/05/2021 06/10/2021 Breast Cancer Screening-Mammogram 06/10/2022 06/10/2021, 06/10/2021, 06/17/2019, Additional history exists Covid-19 Vaccine (4 - 2024-2 6 season) 2024 04/08/2021, 06/15/2020, 05/25/2020 Influenza Vaccine (#1) 2024 01/08/2022, 2015 Well Visit 65+ 01/16/2025 DTaP/Tdap/Td Vaccine (2 - Td or Tdap) 12/23/2029 12/24/2019, 04/20/2009 [facility] A[facility]NA [facility] HMO Care Teams Cuff Turner Machine Operator Relationship Specialty Start Date End Date Jensen Russ MD [facility] [address] [address] PCP - General Med 08/07/22
--- OUTSIDE RECORDS SUMMARY | 2025-04-18 11:13 | XMS_ITS | Clinical Summary ---
Author Organization [facility] Address [address] [place] [address] Care Team Providers Care Hide Stretcher Hand Name Role Phone Unavailable Primary Care Provider Unavailabl e Source Comments [facility],non[facility] Affiliates and Associated Physician Practices is amultiple site organization consisting of ambulatory clinics and hospital sitesin [place], [place], [place] and [place]. This disclosure is being madepursuant to the Care Everywhere program and may not contain all information available regarding this patient. Last updated 18.[facility] Allergies Active Allergy Reactions Criticality Noted Date [...] LURIA, FLUZONE TRIVALENT; 6MO+) (IIV3) 01/19/2016 Covid [employer] primary monoval ent 12+ yr 0.3mL Purple [...] on file Legal Sex Female 2:07 PM REHABILITATION TECHNICIAN Gender Identity Not on file Sexual Orientation [...] or over 60 yrs (1 - Risk 50-74 years 1-dose series) 01/16/2010 PNEUMOCOCCAL VACCINE 50+ (2 of 2 - PPSV23, PCV20, or PCV21) 10/30/2020 09/04/2020 ZOSTER VACCINE (2 of 2) 08/05/2021 06/10/2021 MAMMOGRAM 06/10/2022 06/10/2021, 02/04/2021, 06/17/2019, Additional history exists DEPRESSION SCREENING 04/20/2024 06/10/2021 COLON MONITORING 10/16/2024 10/17/2019, , 10/12/2014, Additional history exists Colorectal Cancer Screening 10/16/2024 COVID-19 VACCINE ( season) 2024 06/15/2020, 05/25/2020 INFLUENZA VACCINE (#1) 2024 01/19/2016 COLONOSCOPY - COLON CA SCREENING 10/16/2029 10/17/2019, 10/12/2014, 10/12/2014 DTAP/TDAP/TD VACCINES (3 - Td or Tdap) 12/23/2029 12/24/2019, 04/20/2009 BONE DENSITY TESTING Completed 01/07/2012 HIB VACCINE Aged Out No longer eligi [...] SCREENING W YINA Routine 06/10/2021 2:50 PM REHABILITATION TECHNICIAN Encounter for screening breast examination ENDOSCOPY, COLON, SCREENING Routine 10/17/2019 DEXA BONE DENSITY RHEUMAT READ Routine 01/07/2012 5:13 PM CDT Well adult exam Premature surgical menopause from Last 3 Months or Most Recently Relevant to Health Maintenance Results * MAMMO BILAT SCREENING W YINA (06/10/2021 2:50 PM REHABILITATION TECHNICIAN) Anatomical Region Laterality Modality Breast Bilateral Mammography 06/10/2021 4:16 PM REHABILITATION TECHNICIAN Impressions 06/11/2021 10:10 AM REHABILITATION TECHNICIAN Annual screening mammography is recommended. OVERALL FINAL ASSESSMENT: BI-RADS CATEGORY 1: NEGATIVE. *Reading Radiologist: Omar Mason on 06/11/2021 at 10:10 AM Narrative 06/11/2021 10:10 AM REHABILITATION TECHNICIAN EXAMINATION: BILATERAL DIGITAL SCREENING MAMMOGRAM AND BILATERAL [...] is no suspicious finding in either breast. us Bruce Morales DO MAMMO ORDERABLES Final Result * ENDOSCOPY, COLON, SCREENING (10/17/2019) us Scanned Document GI PROCEDURE ORDERABLES Final R esult * DEXA BONE DENSITY RHEUMAT READ (01/07/2012 5:13 PM CDT) Anatomical Region Laterality Modality Mammography Narrative 01/15/2012 12:41 PM CDT Joce Troncoso MD 01/15/2012 12:41 PM [facility] [address] [place] [address]. [address] Dual energy radiography was performed on [facility] 1960 Indication: Ovarian failure; smoking history Region BMD T score AP Spine 1.101 -0.7 Fem Neck 0.802 -1.7 Total Hip 0.947 -0.5 Interpretation: The study is of good quality. Osteopenia is present. This is unusual for her age, although smoking is a risk factor. Suggest repeat RALPH in two years. Reported by: Robert Troncoso M.D. Procedure Note Joce Troncoso MD - 01/07/2012 12:40 PM CDT [facility] [address] [facility] [address] [place] [address] Dual energy radiography was performed on Sarahi Landeros 1960 Indication: Ovarian failure; smoking history Region BMD T score AP Spine 1.101 -0.7 Fem Neck 0.802 -1.7 Total Hip 0.947 -0.5 Interpretation: The study is of good quality. Osteopenia is present.This is unusual for her age, although smoking is a risk factor. Suggestrepeat RALPH in two years. Reported by: Robert Troncoso M.D. Varsha Gary MD DEXA ORDERABLES Final Res ult from Last 3 Months or Most Recently Relevant to Health Maintenance Insurance AETNA
--- OUTSIDE RECORDS SUMMARY | 2025-04-18 11:13 | XMS_ITS | Clinical Summary ---
Author Organization [facility] Address [address] [place] [address] Care Team Providers Care Head Banquet Waiter/Waitress Name Role Phone Art Gillespie MD Primary Care Provider Social History Tobacco Use Types Packs/Day Years Used Date Smoking Tobacco: Never Assessed Comments Unknown Sex and Gender Information Value Date Recorded Sex Assigned at Not on file Legal Sex Female 4:14 PM CDT Gender Identity Not on file Sexual Orientation Not on file Plan of Treatment Health Maintenance Due Date Last Done Comments Colorectal Cancer Screening Colonoscopy (10 Years) 1960 Hepatitis C 01/16/1978 Mammogram Screening 2000 Zoster Vaccines (2 of 2) 08/05/2021 06/10/2021 Pneumococcal Vaccine: 50+ Years (2 of 2 - PCV20 or PCV21) 09/04/2021 09/04/2020 COVID-19 Vaccine (4 - 2024-2 6 season) 2024 04/08/2021, 06/15/2020, 05/25/2020 Dexa Scan (General) 01/16/2025 Influenza Adult (#1) 2025 01/19/2016 DTaP, Tdap and Td Vaccines ( 2 - Td or Tdap) 12/23/2029 12/24/2019, 04/20/2009 RSV Immunization or 60+ Years (1 - 1-dose 75+ series) 01/16/2035 Hepatitis A Vaccines Aged Out 04/20/2009 No long er eligible based on patient's age to complete this topic Meningococcal B Vaccine Aged Out No l onger eligible based on patient's age to complete this topic Meningococcal Vaccine Aged Out No mor kalyani eligible based on patient's age to complete this topic RSV Immunizations Under 20 Months Aged Out No longer eligible b ased on patient's age to complete this topic Insurance AETNA Care Teams Head Banquet Waiter/Waitress Relationship Specialty Start Date End Date Art Gillespie MD [address] [place] [phone] PCP - General FAMILY PRACTICE 12/04/21
--- OUTSIDE RECORDS SUMMARY | 2025-04-18 11:13 | XMS_ITS | Clinical Summary ---
Author Organization [facility] Address [address] [place] [address] Phone Care Team Providers Care Intravenous Therapy Nurse Name Role Phone Noah Russ MD Primary Care Provider [phone] Allergies Active Allergy Reactions Criticality Noted Date Comments Codeine Other (See Comments) 09/04/2020 Hallucinate and migrain Medications aspirin (LNENY CHEWABLE) 81 mg Tablet, Chewable Take 81 [...] for Spasm. 90 Tablet 1 09/28/2024 Active magnesium glycinate 100 mg magnesium Capsule Take by mouth. 03/30/2025 Active bisacodyL (DULCOLAX) 5 mg Delayed Release tablet Take 1 Tablet (5 mg) by mouth 1 time daily as needed for Constipation . 03/30/2025 Active Active Problems Problem Noted Date Diagnosed Date Constipation 03/30/2025 Dyspepsia 03/30/2025 Chronic abdominal pain 09/28/2024 Epigastric abdominal pain [...] Encounters Date Type Department Care Team Description 04/11/2025 External Device Data STL ABSTRACTION Provider, Abstract 03/30/2025 8:40 AM FRENCH PROFESSOR Office Visit [facility] Hepatology [address] [place] [address] Pattie Hunt PA Chronic abdominal pain (Primary Dx); Constipation, unspecified constipation type; Dyspepsia 03/07/2025 External Device Data STL ABSTRACTION Provider, Abstract 02/08/2025 External Device Data STL ABSTRACTION Provider, Abstract 02/07/2025 External Device Data STL ABSTRACTION Provider, Abstract from Last 3 Months Immunizations Immunization Administration Dates Next Due Influenza Seasonal Unspecified Formulation IM Family History Medical History Relation Name Comments Cancer Brother 1 Ned Peterson Healthy Brother 1 Ned Peterson Healthy Brother 2 Healthy Brother 3 Healthy Brother 4 Cancer Father Haresh Peterson Pancreatic Cancer Father Haresh Peterson Cancer Mother Zayra Peterson liver, spine, kidney Colon Cancer Neg Hx Relation Name Status Comments Brother 1 Ned Peterson Alive Brother 2 Alive Brother 3 Alive Brother 4 Alive Father Haresh Peterson Mother Zayra Peterson Alive Social History Tobacco Use Types Packs/Day [...] on file Legal Sex Female 11:01 AM FRENCH PROFESSOR Gender Identity Female 03/23/2023 12:50 PM FRENCH PROFESSOR Sexual Orientation Not on file Last Filed Vital Signs Vital Sign Reading Time Taken Comments Blood Pressure 124/79 03/30/2025 8:26 AM FRENCH PROFESSOR Pulse 81 03/30/2025 8:26 AM FRENCH PROFESSOR Temperature 36.1 C (97 F) 10/17/2024 8:44 AM CDT Respiratory Rate 18 10/17/2024 9:03 AM CDT Oxygen Saturation 99% 10/17/2024 9:03 AM CDT Inhaled Oxygen Concentration - - Weight 62.6 kg (138 lb) 03/30/2025 8:26 AM FRENCH PROFESSOR Height 157.5 cm (5' 2) 03/30/2025 8:26 AM FRENCH PROFESSOR Body Mass Index 25.24 03/30/2025 8:26 AM FRENCH PROFESSOR Plan of Treatment Health Maintenance Due Date Last Done Comments Pre-Diabetes and Diabetes Screening 1960 FIT-DNA Q 3 years 01/16/2005 FIT/FOBT Q 1 year 01/16/2005 Flex Sig/CT Colonography Q 5 years 01/16/2005 RSV VACCINE (60+ or ) (1 - Risk 50-74 years 1-dose series) 01/16/2010 PNEUMOCOCCAL VACCINE 50+ YEA RS (2 of 2 - PPSV23, PCV20, or PCV21) 10/30/2020 09/04/2020 ZOSTER VACCINE (2 of 2) 08/05/2021 06/10/2021 BREAST CANCER SCREENING 06/10/2022 06/10/19 22, 06/10/2021, 06/17/2019, Additional history exists INFLUENZA VACCINE (#1) 2024 01/19/2016 OSTEOPOROSIS SCREENING 01/16/2025 01/07/2012 DTAP/TDAP/TD VACCINES (2 - T d or Tdap) 12/23/2029 12/24/2019, 04/20/2009 COLORECTAL SCREENING 10/18/2031 10/17/2024, 10/17/2024, 10/17/2019, Additional history exists Colorectal Cancer Screening 10/18/2031 Medical Devices Implanted Type [employer] Reading Teacher Device Identifier Shelf Expiration Date Model / Serial / Lot Mesh Soft Mesh 6x6 [id number] - [id number] Implanted:Qty : 1 on 05/18/2023 by Matt Martinez MD at [facility] Mesh N/A: Abdomen BARD DAVOL [id number] 02/14/2027 [id number] / / [id number] Stent Contour [id number] - [id number] Implanted:Qty : 1 on 03/30/2016 by Bruce Guevara MD at [facility] Stent Right: Ureter [employer]OLOG[employer]/OCEAN EXPORT AGENT [id number] 11/14/2018 [id number] / / [id number] Stent Contour [id number] - [id number] Implanted:Qty : 1 on 03/30/2016 by Bruce Guevara MD at [facility] Stent Left: Ureter [employer] UROLOG[employer]/OCEAN EXPORT AGENT [id number] 12/11/2018 [id number] / / [id number] Procedures Procedure Name Priority Date/Time Associated Diagnosis Comments COLONOSCOPY REPORT 10/17/2024 8: 41 AM CDT from Last 3 Months or Most Recently Relevant to Health Maintenance Results * COLONOSCOPY REPORT (10/17/2024 8:41 AM CDT) Narrative Procedure Note Henrique Cobos MD - 10/17/2024 8:41 AM CDT Endoscopy Patient Name: Angela Landeros Procedure Date: [...] of Addenda: [address]; [place] [address] Henrique Cobos MD GI PROCEDURE ORDERABLES Jessica l Result from Last 3 Months or Most Recently Relevant to Health Maintenance Insurance RX [facility] [employer] MEDICARE PART A AND B [facility] [id number] Advance Directives For more information, please contact: [phone] * Full Code (Latest Code Status on [...] 1:09 PM 03/30/2016 3:11 PM Care Teams Intravenous Therapy Nurse Relationship Specialty Start Date End Date Noah Russ MD [address] [place] [phone] PCP - General Internal Medicine 12/09/22
== END 2025-04-18 10:28 | disposition home or self-care (01) ==
PROVIDERS: PCP Internal Medicine; Visit Provider Internal Medicine
DX: I73.9 Peripheral vascular disease, unspecified (principal); M79.662 Pain in left lower leg; M79.661 Pain in right lower leg
CPT/HCPCS: 93922